=== PATIENT | male | born 1990 | race Caucasian/White ===

== ENCOUNTER 2016-04-21 14:29 | Emergency (ER) | payer OTHER ==
[2016-04-21 14:32] VITALS: BP 128/63; PULSE 74; RESP 16; TEMP 97.6; O2SAT 97
--- NOTE | 2016-04-21 14:44 | PD ---
HPI Chief Complaint: blood glucose Time Seen by Provider: 14:44 Travel History International Travel<30 days: No Contact w/Intl Traveler<30days: No History of Present Illness HPI 25-year-old type I diabetic presents to the ED for evaluation after running out of his diabetic medications. Patient takes 24 units of Toujeo and sliding scale Humalog daily. Last dose yesterday morning. States sugars were "around 500" last night. On presentation the patient complains of feeling tired. Denies chest pain, shortness of breath, dizziness, abdominal pain, nausea, vomiting, dysuria, hematuria. Patient smokes a pack of cigarettes a day, marijuana occasionally, rare alcohol. NKDA. PFSH Past Medical History Diabetes: Yes Social History Alcohol Use: No Tobacco Use: Yes (1 PPD) Substance Use: Yes (marijuana) Allergies-Medications (Allergen,Severity, Reaction): Coded Allergies: No Known Allergies (Unverified , 04/21/16) Reported Meds & Prescriptions Reported Meds & Active Scripts Active Humulin N Inj (Insulin Human NPH) 1,000 Unit/10 Ml Vial 20 Units SQ BID Humulin R Inj (Insulin Human Regular) 1,000 Unit/10 Ml Vial 5-25 Units SQ ACHS Max dose at bedtime:( )units; sugars < 70,(0)units; sugars 150-199,(5)units; sugars 200-249,(10)units; sugars 250-299,(15)units; sugars 300-349,(20)units; sugars more than 349,(25)units. Reported [tujeo] 24 Units SQ DAILY Humalog Inj (Insulin Human Lispro) 1,000 Unit/10 Ml Vial 1-50 Units SQ ACHS Max dose at bedtime:( )units; sugars< 70,(0)units; sugars 150-199,(1)unit; sugars 200-249,(3)units; sugars 250-299,(5)units; sugars 300-349,(7)units; sugars more than 349,(9)units. Review of Systems Except as stated in HPI: all other systems reviewed are Neg Physical Exam Narrative GENERAL: Well-nourished, well-developed nontoxic appearing white male in no acute distress. SKIN: Warm and dry. HEAD: Normocephalic. EYES: No scleral icterus. No injection or drainage. NECK: Supple, trachea midline. No JVD or lymphadenopathy. CARDIOVASCULAR: Regular rate and rhythm without murmurs, gallops, or rubs. 2+ DP and radial pulses bilaterally. RESPIRATORY: Breath sounds equal bilaterally. Mild, occasional expiratory wheezing. No accessory muscle use. GASTROINTESTINAL: Abdomen soft, non-tender, nondistended. Active bowel sounds. MUSCULOSKELETAL: No cyanosis, or edema. Patient is ambulatory and moves all extremities spontaneously. BACK: Nontender without obvious deformity. No CVA tenderness. Data Data Last Documented VS Vital Signs Date Time Temp Pulse Resp B/P Pulse Ox O2 Delivery O2 Flow Rate FiO2 04/21/16 17:15 84 15 129/64 99 Room Air 04/21/16 14:32 97.6 Orders Blood Glucose (04/21/16 14:49) Complete Blood Count With Diff (04/21/16 14:49) Iv Access Insert/Monitor (04/21/16 14:49) Urinalysis - C+S If Indicated (04/21/16 15:00) Sodium Chlor 0.9% 1000 Ml Inj (Ns 1000 M (04/21/16 15:02) Comprehensive Metabolic Panel (04/21/16 15:03) Electrocardiogram (04/21/16 15:04) Blood Gas Venous (Vbg) (04/21/16 15:30) Sodium Chlor 0.9% 1000 Ml Inj (Ns 1000 M (04/21/16 16:30) Sodium Chlor 0.9% 1000 Ml Inj (Ns 1000 M (04/21/16 16:30) Insulin Human Regular Inj (Novolin R Inj (04/21/16 16:30) Calcium Carbonate (Oscal) (04/21/16 17:00) Blood Glucose (04/21/16 17:42) Propofol 1000 Mg/100 Ml Inj (Diprivan 10 (04/21/16 17:45) Labs Laboratory Tests Test 04/21/16 04/21/16 15:00 17:05 White Blood Count 8.4 TH/MM3 Red Blood Count 4.52 MIL/MM3 Hemoglobin 14.5 GM/DL Hematocrit 41.2 % Mean Corpuscular Volume 91.3 FL Mean Corpuscular Hemoglobin 32.0 PG Mean Corpuscular Hemoglobin 35.1 % Concent Red Cell Distribution Width 12.6 % Platelet Count 144 TH/MM3 Mean Platelet Volume 11.1 FL Neutrophils (%) (Auto) 65.3 % Lymphocytes (%) (Auto) 23.7 % Monocytes (%) (Auto) 6.8 % Eosinophils (%) (Auto) 3.2 % Basophils (%) (Auto) 1.0 % Neutrophils # (Auto) 5.5 TH/MM3 Lymphocytes # (Auto) 2.0 TH/MM3 Monocytes # (Auto) 0.6 TH/MM3 Eosinophils # (Auto) 0.3 TH/MM3 Basophils # (Auto) 0.1 TH/MM3 CBC Comment DIFF FINAL Differential Comment Sodium Level 134 MEQ/L Potassium Level 4.4 MEQ/L Chloride Level 101 MEQ/L Carbon Dioxide Level 25.0 MEQ/L Anion Gap 8 MEQ/L Blood Urea Nitrogen 11 MG/DL Creatinine 0.93 MG/DL Estimat Glomerular Filtration 99 ML/MIN Rate Random Glucose 636 MG/DL Calcium Level 8.0 MG/DL Total Bilirubin 0.3 MG/DL Aspartate Amino Transf 22 U/L (AST/SGOT) Alanine Aminotransferase 27 U/L (ALT/SGPT) Alkaline Phosphatase 116 U/L Total Protein 6.8 GM/DL Albumin 3.4 GM/DL Urine Color COLORLESS Urine Turbidity CLEAR Urine pH 6.5 Urine Specific [place] 1.034 Urine Protein NEG mg/dL Urine Glucose (UA) 1000 mg/dL Urine Ketones NEG mg/dL Urine Occult Blood NEG Urine Nitrite NEG Urine Bilirubin NEG Urine Urobilinogen LESS THAN 2.0 MG/DL Urine Leukocyte Esterase NEG Microscopic Urinalysis Comment CULT NOT INDICATED MDM Medical Decision Making Medical Screen Exam Complete: Yes Emergency Medical Condition: Yes Interpretation(s) EKG rate 63, sinus rhythm. FL interval 134. QRS 92 QTc 431. Normal axis. No ischemic changes. Reviewed by Dr. Fonseca. Differential Diagnosis hyperglycemia versus electrolyte abnormality versus DKA versus dehydration verus dysrhythmia versus other Narrative Course 25-year-old type I diabetic presents to the ED for evaluation after running out of insulin. Patient takes 24 units of Toujeo and sliding scale Humalog daily. Last dose yesterday morning. States sugars were "around 500" last night. On presentation the patient complains of feeling tired. Denies chest pain, shortness of breath, dizziness, abdominal pain, nausea, vomiting, dysuria, hematuria. Vitals reviewed. Physical exam reveals a nontoxic-appearing white male in no acute distress. Mild, occasional expiratory wheeze, no extra work of breathing. Abdomen is soft and nontender. IV was established. Patient was placed on continuous monitoring. He was administered 2 liters of normal saline. Bedside blood glucose 592. CBC: WBC 8.4 Hgb 14.5 CMP: Blood glucose 636. Potassium 4.4. Sodium 134. CO2 25. Anion gap 8. Calcium 8.0. UA: Glucose thousand, no ketones. No culture indicated. EKG: Rate 63, sinus rhythm, normal intervals, normal axis. Patient was administered 10 units of regular insulin. Oral calcium supplement administered. Patient states he is unable to afford his medications. I contacted the vault manager. Unfortunately, were unable to offer any assistance for medications. Recheck of BG at bedside: 328 Will prescribe NPH and regular insulin, which costss less than Nominum. NPH 20 units twice a day, regular insulin 15 units scale before meals. Adjust regular insulin to maintain blood glucose target levels. Follow up with the PCP, return to the ED for worsening of symptoms or any urgent/emergent medical condition. He indicated understanding of the instructions. He is stable and discharged. Diagnosis Primary Impression: Hyperglycemia due to type 1 diabetes mellitus Additional Impression: Hypocalcemia Referrals: Primary Care Physician Patient Instructions: General Instructions, Type 1 Diabetes in Adults (ED) Additional Instructions: Rest, hydrated. Take all medication as prescribed. Follow-up the primary care provider Return to the ED for worsening of symptoms or any urgent or emergent medical condition. Med/Other Pt SpecificInfo: Prescription(s) given Scripts Insulin Human NPH Inj (Humulin N Inj)1,000 Unit/10 Ml Vial20 Units SQ BID #10 ML Ref 0 Prov:Paulette Fonseca DO 04/21/16 Insulin Human Regular Inj (Humulin R Inj)1,000 Unit/10 Ml Vial5-25 Units SQ ACHS #10 ML Ref 0 Max dose at bedtime:( )units; sugars < 70,(0)units; sugars 150-199,(5)units; sugars 200-249,(10)units; sugars 250-299,(15)units; sugars 300-349,(20)units; sugars more than 349,(25)units. Prov:Paulette Fonseca DO 04/21/16 Disposition: 01 DISCHARGE HOME Condition: Stable Kasey Parham Apr 21, 2016 14:44
[2016-04-21] MEDS ORDERED: tujeo SQ (14:51)
[2016-04-21] MEDS ORDERED: HUMALOG SQ (14:51)
[2016-04-21 14:55] VITALS: BP 139/74; PULSE 78; RESP 16; O2SAT 96
[2016-04-21] MEDS ORDERED: SODIUM CHLOR 0.9% 1000 ML INJ 1,000 ML IV SCH (15:02)
[2016-04-21 15:35] LABS: AUTOMATED NEUTROPHIL # 5.5 TH/MM3 (1.8-7.7); BASOPHIL # 0.1 TH/MM3 (0-0.2); EOSINOPHIL # 0.3 TH/MM3 (0-0.4); EOSINOPHIL % 3.2 % (0.0-4.0); HEMATOCRIT 41.2 % (39.0-51.0); HEMO FLAGS DIFF FINAL; LYMPH % 23.7 % (9.0-44.0); MEAN CELL VOLUME 91.3 FL (80.0-100.0); MEAN CORPUSCULAR HGB CONC 35.1 % (32.0-36.0); MONO % 6.8 % (0.0-8.0); NEUT % 65.3 % (16.0-70.0); PLATELET COUNT 144 TH/MM3 (150-450); RED BLOOD COUNT 4.52 MIL/MM3 (4.50-5.90); RED CELL DISTRIBUTION WIDTH 12.6 % (11.6-17.2); WHITE BLOOD COUNT 8.4 TH/MM3 (4.0-11.0)
[2016-04-21 16:05] LABS: ALKALINE PHOSPHATASE 116 U/L (45-117); ALT (GPT) 27 U/L (12-78); ANION GAP 8 MEQ/L (5-15); AST (GOT) 22 U/L (15-37); BLOOD UREA NITROGEN 11 MG/DL (7-18); CHLORIDE 101 MEQ/L (98-107); GLOMERULAR FILTRATION RATE 99 ML/MIN (>89); POTASSIUM 4.4 MEQ/L (3.5-5.1); SODIUM (NA) 134 MEQ/L (136-145); TOTAL BILIRUBIN ADULT 0.3 MG/DL (0.2-1.0)
[2016-04-21] MEDS ORDERED: SODIUM CHLOR 0.9% 1000 ML INJ 1,000 ML IV ONE ×2 (16:30)
[2016-04-21] MEDS ORDERED: INSULIN HUMAN REGULAR 1,000 UNITS/10 ML VIAL SQ ONE (16:30)
[2016-04-21] MEDS ORDERED: CALCIUM CARBONATE 1.25 GM (CA 500 MG) TAB PO ONE (17:00)
[2016-04-21 17:15] VITALS: BP 129/64; PULSE 84; RESP 15; O2SAT 99
[2016-04-21] MEDS ORDERED: PROPOFOL 1000 MG/100 ML INJ 100 ML ONE (17:45)
[2016-04-21 17:56] LABS: BLOOD, URINE NEG (NEG); GLUCOSE,URINE 1000 mg/dL (NEG); KETONE, URINE NEG (NEG); NITRITE,URINE NEG (NEG); PH, URINE 6.5 (5.0-8.5); URINE COLOR COLORLESS (YELLW/STRAW)
[2016-04-21 18:03] LABS: COMMENT (UR) CULT NOT INDICATED; CULTURE IF INDICATED CULT NOT INDICATED
[2016-04-21] MEDS ORDERED: INSU100V2 SQ (18:34)
[2016-04-21] MEDS ORDERED: INSU100V3 SQ (18:34)
--- NOTE | 2016-04-21 19:11 | PD ---
Physical Exam Narrative I, Dr. Fonseca, have reviewed the advance practice practitioner's documentation and am in agreement, met with the patient face to face, made the diagnosis, and the medical decision making was done by me. *My assessment and Findings: Uncontrolled DM secondary to noncompliance vs. DKA 25yo IDDM with elevated glucose secondary to running out of his insulin. Denies any other complaints including chest pain, sob, n/v, abdominal pain. Labs reviewed, no leukocytosis. Glucose elevated at 636. Normal anion gap. CO2 25.0. UA showed no leukocyte. Pt given 10 units of subQ insulin, NS IVF x2 and calcium carbonate. Repeat blood glucose was 328. Pt educted and given prescription for insulin. Return precautions given. VS stable. Data Data Last Documented VS Vital Signs Date Time Temp Pulse Resp B/P Pulse Ox O2 Delivery O2 Flow Rate FiO2 04/21/16 17:15 84 15 129/64 99 Room Air 04/21/16 14:32 97.6 Orders Blood Glucose (04/21/16 14:49) Complete Blood Count With Diff (04/21/16 14:49) Iv Access Insert/Monitor (04/21/16 14:49) Urinalysis - C+S If Indicated (04/21/16 15:00) Sodium Chlor 0.9% 1000 Ml Inj (Ns 1000 M (04/21/16 15:02) Comprehensive Metabolic Panel (04/21/16 15:03) Electrocardiogram (04/21/16 15:04) Blood Gas Venous (Vbg) (04/21/16 15:30) Sodium Chlor 0.9% 1000 Ml Inj (Ns 1000 M (04/21/16 16:30) Sodium Chlor 0.9% 1000 Ml Inj (Ns 1000 M (04/21/16 16:30) Insulin Human Regular Inj (Novolin R Inj (04/21/16 16:30) Calcium Carbonate (Oscal) (04/21/16 17:00) Blood Glucose (04/21/16 17:42) Propofol 1000 Mg/100 Ml Inj (Diprivan 10 (04/21/16 17:45) Labs Laboratory Tests Test 04/21/16 04/21/16 15:00 17:05 White Blood Count 8.4 TH/MM3 Red Blood Count 4.52 MIL/MM3 Hemoglobin 14.5 GM/DL Hematocrit 41.2 % Mean Corpuscular Volume 91.3 FL Mean Corpuscular Hemoglobin 32.0 PG Mean Corpuscular Hemoglobin 35.1 % Concent Red Cell Distribution Width 12.6 % Platelet Count 144 TH/MM3 Mean Platelet Volume 11.1 FL Neutrophils (%) (Auto) 65.3 % Lymphocytes (%) (Auto) 23.7 % Monocytes (%) (Auto) 6.8 % Eosinophils (%) (Auto) 3.2 % Basophils (%) (Auto) 1.0 % Neutrophils # (Auto) 5.5 TH/MM3 Lymphocytes # (Auto) 2.0 TH/MM3 Monocytes # (Auto) 0.6 TH/MM3 Eosinophils # (Auto) 0.3 TH/MM3 Basophils # (Auto) 0.1 TH/MM3 CBC Comment DIFF FINAL Differential Comment Sodium Level 134 MEQ/L Potassium Level 4.4 MEQ/L Chloride Level 101 MEQ/L Carbon Dioxide Level 25.0 MEQ/L Anion Gap 8 MEQ/L Blood Urea Nitrogen 11 MG/DL Creatinine 0.93 MG/DL Estimat Glomerular Filtration 99 ML/MIN Rate Random Glucose 636 MG/DL Calcium Level 8.0 MG/DL Total Bilirubin 0.3 MG/DL Aspartate Amino Transf 22 U/L (AST/SGOT) Alanine Aminotransferase 27 U/L (ALT/SGPT) Alkaline Phosphatase 116 U/L Total Protein 6.8 GM/DL Albumin 3.4 GM/DL Urine Color COLORLESS Urine Turbidity CLEAR Urine pH 6.5 Urine Specific [place] 1.034 Urine Protein NEG mg/dL Urine Glucose (UA) 1000 mg/dL Urine Ketones NEG mg/dL Urine Occult Blood NEG Urine Nitrite NEG Urine Bilirubin NEG Urine Urobilinogen LESS THAN 2.0 MG/DL Urine Leukocyte Esterase NEG Microscopic Urinalysis Comment CULT NOT INDICATED MDM Supervised Visit with PRANA[facility]: Yes Interpretation(s) EKG: NSR 63bpm. Normal axis. No ST segment elevation or depression. Diagnosis Primary Impression: Hyperglycemia due to type 1 diabetes mellitus Additional Impression: Hypocalcemia Referrals: Primary Care Physician call for appointment Patient Instructions: General Instructions, Type 1 Diabetes in Adults (ED) Departure Forms: Tests/Procedures Additional Instruction: Rest, hydrated. Take all medication as prescribed. Follow-up the primary care provider Return to the ED for worsening of symptoms or any urgent or emergent medical condition. Scripts Insulin Human NPH Inj (Humulin N Inj)1,000 Unit/10 Ml Vial20 Units SQ BID #10 ML Ref 0 Prov:FonsecaPaulette goodson 04/21/16 Insulin Human Regular Inj (Humulin R Inj)1,000 Unit/10 Ml Vial5-25 Units SQ ACHS #10 ML Ref 0 Max dose at bedtime:( )units; sugars < 70,(0)units; sugars 150-199,(5)units; sugars 200-249,(10)units; sugars 250-299,(15)units; sugars 300-349,(20)units; sugars more than 349,(25)units. Prov:Paulette Fonseca DO 04/21/16 Disposition: 01 DISCHARGE HOME Condition: Stable Paulette Fonseca DO Apr 21, 2016 19:11
[2016-04-22] MEDS ORDERED: INSU1.2I SQ (09:36)
--- NOTE | 2016-04-22 17:13 | EKG ---
Date Performed: 04/21/2016 Time Performed: 16:04:51 PTAGE: 25 years EKG: Sinus rhythm WITH SINUS ARRHYTHMIA NORMAL ECG NO PREVIOUS TRACING DOCTOR: Ashkan Ortega Interpretating Date/Time 04/22/2016 17:11:51
== END 2016-04-21 19:11 | disposition home or self-care (01) ==
LOC: NEPA 14:29
DX: E10.65 Type 1 diabetes mellitus with hyperglycemia (principal); E83.51 Hypocalcemia; Z72.0 Tobacco use; F12.90 Cannabis use, unspecified, uncomplicated; Z79.4 Long term (current) use of insulin
CPT/HCPCS: 80053; 81001; 85025; 93005; 96360; 96361; 96372; 99285; J1815; J7030

== ENCOUNTER 2016-06-30 06:48 | Emergency (ER) | payer OTHER ==
[~2016-06-30] VITALS: Ht 180.3 cm; Wt 80.0 kg
[~2016-06-30 06:48] MED LIST: HUMALOG SQ; INSU1.2I SQ; INSU100V2 SQ; INSU100V3 SQ
[2016-06-30 06:51] VITALS: BP 128/81; PULSE 73; RESP 15; TEMP 98.3; O2SAT 100
[2016-06-30] MEDS ORDERED: SODIUM CHLOR 0.9% 1000 ML INJ 1,000 ML IV ONE ×2 (07:22→07:52)
--- NOTE | 2016-06-30 07:26 | PD ---
HPI Chief Complaint: Medication Refill Request Time Seen by Provider: 07:15 Travel History International Travel<30 days: No Contact w/Intl Traveler<30days: No Traveled to known affect area: No History of Present Illness HPI Patient is a 25-year-old male who presents to the emergency department for hyperglycemia. The patient has a history of type 1 diabetes and has been taken Novolin N 25 units twice a day and Novolin R, 10-1 carb count ratio. The patient states he ran out of Novolin N 2 days ago and has been using his Novolin R, last dose was approximate 4:30 AM with 18 units. He does complain of mild nausea without any vomiting or abdominal pain. He does complain of mild increased thirst. The patient does have a history of DKA. The patient is currently homeless, has been trying to get through the homeless coalition to find a primary physician. The patient's last prescription for insulin was prescribed in the emergency department 2 months ago per his report. He denies any chest pain or shortness of breath. Symptoms are moderate, exacerbated by history of diabetes and running out of his medications. PFSH Past Medical History Diabetes: Yes Social History Alcohol Use: No Tobacco Use: Yes (1 PPD) Substance Use: Yes (marijuana) Allergies-Medications (Allergen,Severity, Reaction): Coded Allergies: No Known Allergies (Unverified , 04/21/16) Reported Meds & Prescriptions Reported Meds & Active Scripts Active Novolin R Inj (Insulin Human Regular) 1,000 Unit/10 Ml Vial 2-12 Units SQ ACHS Max dose at bedtime:( )units; sugars less than 70,(0) units; sugars 150-199,(2)unit; sugars 200-249,(4)units; sugars 250-299,(7) units; sugars 300-349,(10)units; sugars greater than 349,(12)units Novolin N Inj (Insulin Human NPH) 1,000 Unit/10 Ml Vial 20 Units SQ BID Humulin N Inj (Insulin Human NPH) 1,000 Unit/10 Ml Vial 20 Units SQ BID Humulin R Inj (Insulin Human Regular) 1,000 Unit/10 Ml Vial 5-25 Units SQ ACHS Max dose at bedtime:( )units; sugars < 70,(0)units; sugars 150-199,(5)units; sugars 200-249,(10)units; sugars 250-299,(15)units; sugars 300-349,(20)units; sugars more than 349,(25)units. Review of Systems Except as stated in HPI: all other systems reviewed are Neg General / Constitutional: No: Fever HENT: No: Lightheadedness Cardiovascular: No: Chest Pain or Discomfort Respiratory: No: Shortness of Breath Gastrointestinal: Positive: Nausea, No: Vomiting, Abdominal Pain Musculoskeletal: No: Weakness Endocrine: Positive: Polyuria, Polydipsia Physical Exam Narrative GENERAL: Awake, alert, pleasant 25-year-old male who appears his stated age and is in no acute respiratory distress. SKIN: Warm and dry. HEAD: Atraumatic. Normocephalic. EYES: Pupils equal and round. No scleral icterus. No injection or drainage. ENT: No nasal bleeding or discharge. Slightly dry mucous membranes. NECK: Trachea midline. No JVD. CARDIOVASCULAR: Regular rate and rhythm. No murmur appreciated. RESPIRATORY: No accessory muscle use. Clear to auscultation. Breath sounds equal bilaterally. GASTROINTESTINAL: Abdomen soft, non-tender, nondistended. MUSCULOSKELETAL: No obvious deformities. No clubbing. No cyanosis. No edema. NEUROLOGICAL: Awake and alert. No obvious cranial nerve deficits. Motor grossly within normal limits. Normal speech. PSYCHIATRIC: Appropriate mood and affect; insight and judgment normal. Data Data Last Documented VS Vital Signs Date Time Temp Pulse Resp B/P Pulse Ox O2 Delivery O2 Flow Rate FiO2 06/30/16 06:51 98.3 73 15 128/81 100 Room Air Orders Complete Blood Count With Diff (06/30/16 07:22) Comprehensive Metabolic Panel (06/30/16 07:22) Magnesium (Mg) (06/30/16 07:22) Beta Hydroxybutyrate (Acetone) (06/30/16 07:22) Urinalysis - C+S If Indicated (06/30/16 07:22) Blood Gas Venous (Vbg) (06/30/16 07:22) Ecg Monitoring (06/30/16 07:22) Iv Access Insert/Monitor (06/30/16 07:22) Oximetry (06/30/16 07:22) NPO (06/30/16 07:22) Sodium Chlor 0.9% 1000 Ml Inj (Ns 1000 M (06/30/16 07:22) Sodium Chlor 0.9% 1000 Ml Inj (Ns 1000 M (06/30/16 07:52) Sodium Chloride 0.9% Flush (Ns Flush) (06/30/16 07:30) Lipase (06/30/16 07:22) Insulin Human Regular Inj (Novolin R Inj (06/30/16 08:15) Insulin Aspart Inj (Novolog Inj) (06/30/16 08:15) Labs Laboratory Tests Test 06/30/16 06/30/16 06/30/16 07:25 07:32 08:25 White Blood Count 8.7 TH/MM3 Red Blood Count 4.68 MIL/MM3 Hemoglobin 14.8 GM/DL Hematocrit 44.7 % Mean Corpuscular Volume 95.4 FL Mean Corpuscular Hemoglobin 31.6 PG Mean Corpuscular Hemoglobin 33.1 % Concent Red Cell Distribution Width 12.6 % Platelet Count 190 TH/MM3 Mean Platelet Volume 10.2 FL Neutrophils (%) (Auto) 63.5 % Lymphocytes (%) (Auto) 25.8 % Monocytes (%) (Auto) 6.6 % Eosinophils (%) (Auto) 2.6 % Basophils (%) (Auto) 1.5 % Neutrophils # (Auto) 5.5 TH/MM3 Lymphocytes # (Auto) 2.2 TH/MM3 Monocytes # (Auto) 0.6 TH/MM3 Eosinophils # (Auto) 0.2 TH/MM3 Basophils # (Auto) 0.1 TH/MM3 CBC Comment DIFF FINAL Differential Comment Sodium Level 132 MEQ/L Potassium Level 4.3 MEQ/L Chloride Level 94 MEQ/L Carbon Dioxide Level 29.0 MEQ/L Anion Gap 9 MEQ/L Blood Urea Nitrogen 15 MG/DL Creatinine 1.13 MG/DL Estimat Glomerular Filtration 79 ML/MIN Rate Random Glucose 635 MG/DL Calcium Level 9.2 MG/DL Magnesium Level 2.2 MG/DL Total Bilirubin 0.3 MG/DL Aspartate Amino Transf 20 U/L (AST/SGOT) Alanine Aminotransferase 35 U/L (ALT/SGPT) Alkaline Phosphatase 127 U/L Total Protein 7.8 GM/DL Albumin 3.7 GM/DL Lipase 190 U/L B-Hydroxybutyrate 0.14 MMOL/L Blood Gas Puncture Site LINE Blood Gas Patient Temperature 98.6 Venous Blood pH 7.34 Venous Blood Partial Pressure 44 mmHg CO2 Venous Blood Partial Pressure 53 mmHg O2 Venous Blood HCO3 23 mmol/L Venous Blood Oxygen Saturation 83 % Venous Blood Oxygen Content 14.5 Vol % Venous Blood Base Excess -1.8 mmol/L Blood Gas Inspired Oxygen 21 % Urine Color COLORLESS Urine Turbidity CLEAR Urine pH 5.0 Urine Specific [place] 1.024 Urine Protein NEG mg/dL Urine Glucose (UA) 1000 mg/dL Urine Ketones NEG mg/dL Urine Occult Blood TRACE Urine Nitrite NEG Urine Bilirubin NEG Urine Urobilinogen LESS THAN 2.0 MG/DL Urine Leukocyte Esterase NEG Urine RBC 6 /hpf Microscopic Urinalysis Comment CULT NOT INDICATED MDM Medical Decision Making Medical Screen Exam Complete: Yes Emergency Medical Condition: Yes Medical Record Reviewed: Yes Interpretation(s) Laboratory Tests Test 06/30/16 06/30/16 06/30/16 07:25 07:32 08:25 White Blood Count 8.7 TH/MM3 Red Blood Count 4.68 MIL/MM3 Hemoglobin 14.8 GM/DL Hematocrit 44.7 % Mean Corpuscular Volume 95.4 FL Mean Corpuscular Hemoglobin 31.6 PG Mean Corpuscular Hemoglobin 33.1 % Concent Red Cell Distribution Width 12.6 % Platelet Count 190 TH/MM3 Mean Platelet Volume 10.2 FL Neutrophils (%) (Auto) 63.5 % Lymphocytes (%) (Auto) 25.8 % Monocytes (%) (Auto) 6.6 % Eosinophils (%) (Auto) 2.6 % Basophils (%) (Auto) 1.5 % Neutrophils # (Auto) 5.5 TH/MM3 Lymphocytes # (Auto) 2.2 TH/MM3 Monocytes # (Auto) 0.6 TH/MM3 Eosinophils # (Auto) 0.2 TH/MM3 Basophils # (Auto) 0.1 TH/MM3 CBC Comment DIFF FINAL Differential Comment Sodium Level 132 MEQ/L Potassium Level 4.3 MEQ/L Chloride Level 94 MEQ/L Carbon Dioxide Level 29.0 MEQ/L Anion Gap 9 MEQ/L Blood Urea Nitrogen 15 MG/DL Creatinine 1.13 MG/DL Estimat Glomerular Filtration 79 ML/MIN Rate Random Glucose 635 MG/DL Calcium Level 9.2 MG/DL Magnesium Level 2.2 MG/DL Total Bilirubin 0.3 MG/DL Aspartate Amino Transf 20 U/L (AST/SGOT) Alanine Aminotransferase 35 U/L (ALT/SGPT) Alkaline Phosphatase 127 U/L Total Protein 7.8 GM/DL Albumin 3.7 GM/DL Lipase 190 U/L B-Hydroxybutyrate 0.14 MMOL/L Blood Gas Puncture Site LINE Blood Gas Patient Temperature 98.6 Venous Blood pH 7.34 Venous Blood Partial Pressure 44 mmHg CO2 Venous Blood Partial Pressure 53 mmHg O2 Venous Blood HCO3 23 mmol/L Venous Blood Oxygen Saturation 83 % Venous Blood Oxygen Content 14.5 Vol % Venous Blood Base Excess -1.8 mmol/L Blood Gas Inspired Oxygen 21 % Urine Color COLORLESS Urine Turbidity CLEAR Urine pH 5.0 Urine Specific [place] 1.024 Urine Protein NEG mg/dL Urine Glucose (UA) 1000 mg/dL Urine Ketones NEG mg/dL Urine Occult Blood TRACE Urine Nitrite NEG Urine Bilirubin NEG Urine Urobilinogen LESS THAN 2.0 MG/DL Urine Leukocyte Esterase NEG Urine RBC 6 /hpf Microscopic Urinalysis Comment CULT NOT INDICATED Differential Diagnosis Differential diagnosis includes hyperglycemia, DKA, noncompliance, dehydration, electrolyte abnormality. Narrative Course IV was established, labs are drawn and sent, and the patient was placed on cardiac telemetry monitoring and continuous pulse oximetry monitoring. The patient was administered a 2 L of IV fluids. The patient's blood sugar read "high ", in triage. The patient's blood glucose was greater in 600, therefore, patient was administered insulin 10 units intravenously and 10 units subcutaneously. Patient's Accu-Chek is reevaluated, was 214. The patient was fed and blood glucose was repeated one hour later. Patient's ABG is normal, anion gap is normal, no evidence of DKA. Diagnosis Primary Impression: Hyperglycemia due to type 1 diabetes mellitus Patient Instructions: General Instructions Additional Instructions: Medications as directed. Follow-up with your primary physician. Return if symptoms worsen or progress. Monitor blood glucose daily. Med/Other Pt SpecificInfo: Prescription(s) given Scripts Insulin Human Regular Inj (Novolin R Inj)1,000 Unit/10 Ml Vial2-12 Units SQ ACHS #10 ML Ref 3 Max dose at bedtime:( )units; sugars less than 70,(0) units; sugars 150-199,(2)unit; sugars 200-249,(4)units; sugars 250-299,(7) units; sugars 300-349,(10)units; sugars greater than 349,(12)units Prov:Alfa Hogan MD 06/30/16 Insulin Human NPH Inj (Novolin N Inj)1,000 Unit/10 Ml Vial20 Units SQ BID #10 ML Ref 3 Prov:Alfa Hogan MD 06/30/16 Disposition: 01 DISCHARGE HOME Condition: Stable Alfa Hogan MD Jun 30, 2016 07:26
[2016-06-30] MEDS ORDERED: SODIUM CHLORIDE 0.9% FLUSH 5 ML FLUSH IVF PRN (07:30)
[2016-06-30 07:42] LABS: AUTOMATED NEUTROPHIL # 5.5 TH/MM3 (1.8-7.7); BASOPHIL # 0.1 TH/MM3 (0-0.2); BASOPHIL % 1.5 % (0.0-2.0); EOSINOPHIL # 0.2 TH/MM3 (0-0.4); EOSINOPHIL % 2.6 % (0.0-4.0); HEMATOCRIT 44.7 % (39.0-51.0); HEMO FLAGS DIFF FINAL; LYMPH % 25.8 % (9.0-44.0); LYMPHOCYTE # 2.2 TH/MM3 (1.0-4.8); MEAN CELL VOLUME 95.4 FL (80.0-100.0); MEAN CORPUSCULAR HEMOGLOBIN 31.6 PG (27.0-34.0); MEAN CORPUSCULAR HGB CONC 33.1 % (32.0-36.0); MONO % 6.6 % (0.0-8.0); NEUT % 63.5 % (16.0-70.0); PLATELET COUNT 190 TH/MM3 (150-450); RED BLOOD COUNT 4.68 MIL/MM3 (4.50-5.90); RED CELL DISTRIBUTION WIDTH 12.6 % (11.6-17.2); WHITE BLOOD COUNT 8.7 TH/MM3 (4.0-11.0)
[2016-06-30 07:43] LABS: BLOOD GAS VENOUS BASE EXCESS -1.8 mmol/L (-2-2); BLOOD GAS VENOUS HCO3 23 mmol/L (22-26); BLOOD GAS VENOUS O2 CONTENT 14.5 Vol % (9.0-17.0); BLOOD GAS VENOUS O2 HGB SAT 83 % (70-76); BLOOD GAS VENOUS PCO2 44 mmHg (44-48); BLOOD GAS VENOUS PO2 53 mmHg (35-40); BLOOD GAS VENOUS pH 7.34 (7.360-7.400); CRITICAL VALUE NO; DRAW SITE LINE; FIO2 21 %; STAT YES; TEMP CORR TO 98.6
[2016-06-30 07:57] LABS: ALT (GPT) 35 U/L (12-78); ANION GAP 9 MEQ/L (5-15); AST (GOT) 20 U/L (15-37); BLOOD UREA NITROGEN 15 MG/DL (7-18); CHLORIDE 94 MEQ/L (98-107); GLOMERULAR FILTRATION RATE 79 ML/MIN (>89); MAGNESIUM 2.2 MG/DL (1.5-2.5); POTASSIUM 4.3 MEQ/L (3.5-5.1); SODIUM (NA) 132 MEQ/L (136-145)
[2016-06-30 08:06] LABS: ALKALINE PHOSPHATASE 127 U/L (45-117); BETA-HYDROXYBUTYRATE 0.14 MMOL/L (0.00-0.39); TOTAL BILIRUBIN ADULT 0.3 MG/DL (0.2-1.0)
[2016-06-30] MEDS ORDERED: INSULIN ASPART 1,000 UNITS/10 ML VIAL SQ ONE (08:15)
[2016-06-30] MEDS ORDERED: INSULIN HUMAN REGULAR 1,000 UNITS/10 ML VIAL IV PUSH ONE (08:15)
[2016-06-30 08:49] LABS: BLOOD, URINE TRACE (NEG); COMMENT (UR) CULT NOT INDICATED; CULTURE IF INDICATED CULT NOT INDICATED; GLUCOSE,URINE 1000 mg/dL (NEG); KETONE, URINE NEG (NEG); NITRITE,URINE NEG (NEG); URINE COLOR COLORLESS (YELLW/STRAW)
[2016-06-30] MEDS ORDERED: NOVONP2 SQ (09:07)
[2016-06-30] MEDS ORDERED: NOVORP2 SQ (09:07)
[2016-06-30 10:44] VITALS: BP 128/76
== END 2016-06-30 10:45 | disposition home or self-care (01) ==
LOC: NEPE 06:48
DX: E10.65 Type 1 diabetes mellitus with hyperglycemia (principal); Z79.4 Long term (current) use of insulin; F17.210 Nicotine dependence, cigarettes, uncomplicated
CPT/HCPCS: 80053; 81001; 82010; 82805; 83690; 83735; 85025; 96361; 96372; 96374; 99285; J1815; J7030

== ENCOUNTER 2016-07-01 07:21 | Inpatient (IN) | payer OTHER ==
[~2016-07-01] VITALS: Ht 180.3 cm; Wt 82.0 kg
[~2016-07-01 07:21] MED LIST changes: -HUMALOG SQ; -INSU1.2I SQ; +NOVONP2 SQ; +NOVORP2 SQ
[2016-07-01] MEDS ORDERED: SODIUM CHLOR 0.9% 1000 ML INJ 1,000 ML IV ONE ×3 (07:40→08:30)
[2016-07-01] MEDS ORDERED: SODIUM CHLORIDE 0.9% FLUSH 5 ML FLUSH IVF PRN (07:45)
[2016-07-01 07:55] LABS: BLOOD GAS VENOUS BASE EXCESS -7.4 mmol/L (-2-2); BLOOD GAS VENOUS HCO3 18 mmol/L (22-26); BLOOD GAS VENOUS O2 HGB SAT 89 % (70-76); BLOOD GAS VENOUS PCO2 38 mmHg (44-48); BLOOD GAS VENOUS PO2 68 mmHg (35-40); TEMP CORR TO 98.6
[2016-07-01 07:56] LABS: CRITICAL VALUE YES; DRAW SITE NURSE; FIO2 21 %; STAT YES
[2016-07-01 07:57] VITALS: BP 137/64; PULSE 72; RESP 20; TEMP 98.3; O2SAT 94
[2016-07-01] MEDS ORDERED: ONDANSETRON HCL 4 MG/2 ML VIAL IV PUSH ONE (08:00)
[2016-07-01 08:07] LABS: BASOPHIL # 0.1 TH/MM3 (0-0.2); BASOPHIL % 1.5 % (0.0-2.0); EOSINOPHIL # 0.1 TH/MM3 (0-0.4); EOSINOPHIL % 1.1 % (0.0-4.0); HEMATOCRIT 43.9 % (39.0-51.0); HEMO FLAGS DIFF FINAL; LYMPH % 21.8 % (9.0-44.0); LYMPHOCYTE # 2.2 TH/MM3 (1.0-4.8); MEAN CORPUSCULAR HEMOGLOBIN 32.2 PG (27.0-34.0); MEAN CORPUSCULAR HGB CONC 34.3 % (32.0-36.0); MONO % 4.8 % (0.0-8.0); NEUT % 70.8 % (16.0-70.0); PLATELET COUNT 237 TH/MM3 (150-450); RED BLOOD COUNT 4.67 MIL/MM3 (4.50-5.90); RED CELL DISTRIBUTION WIDTH 12.7 % (11.6-17.2); WHITE BLOOD COUNT 9.9 TH/MM3 (4.0-11.0)
--- NOTE | 2016-07-01 08:26 | PD ---
HPI Chief Complaint: Diabetic Time Seen by Provider: 07:32 Travel History International Travel<30 days: No Contact w/Intl Traveler<30days: No Traveled to known affect area: No History of Present Illness HPI 25-year-old male presents with feeling like he is in DKA with chest pain, vomiting and general ill feeling. He states since he was discharged here at 10: 30 yesterday morning he could not fill this prescription as our pharmacy is closed on the weekend and he cannot afford to get it filled at an outside pharmacy. He waited to come until now as he was trying to collect money to get the prescription but as he was getting sicker he decided he could not wait. He states no other concurrent complaints. Quality is nonbloody. Severity is multiple episodes of emesis. Duration is since yesterday. PFSH Past Medical History Diabetes: Yes Patient Takes Glucophage: No Diminished Hearing: No Tetanus Vaccination: > 5 Years Influenza Vaccination: No Past Surgical History Surgical History: No Previous Surgery Social History Alcohol Use: No Tobacco Use: Yes (1 PPD) Substance Use: Yes (marijuana) Allergies-Medications (Allergen,Severity, Reaction): Coded Allergies: No Known Allergies (Unverified , 07/01/16) Reported Meds & Prescriptions Reported Meds & Active Scripts Active No Active Prescriptions or Reported Medications Review of Systems Except as stated in HPI: all other systems reviewed are Neg Physical Exam Narrative GENERAL: Well-nourished, well-developed patient. SKIN: Warm and dry. HEAD: Normocephalic and atraumatic. EYES: No injection or drainage. ENT: No nasal drainage noted. NECK: Supple, trachea midline. CARDIOVASCULAR: Regular rate and rhythm RESPIRATORY: Breath sounds equal bilaterally at apices. No accessory muscle use. GASTROINTESTINAL: Abdomen soft, mild tender epigastric area, nondistended. EXTREMITIES: No edema. NEUROLOGICAL: Awake and alert. Moves all extremities. Normal speech. Data Data Last Documented VS Vital Signs Date Time Temp Pulse Resp B/P Pulse Ox O2 Delivery O2 Flow Rate FiO2 07/01/16 07:57 98.3 72 20 137/64 94 Orders Complete Blood Count With Diff (07/01/16 07:40) Comprehensive Metabolic Panel (07/01/16 07:40) Magnesium (Mg) (07/01/16 07:40) Phosphorus (Po4) (07/01/16 07:40) Beta Hydroxybutyrate (Acetone) (07/01/16 07:40) Urinalysis - C+S If Indicated (07/01/16 07:40) Blood Gas Venous (Vbg) (07/01/16 07:40) Blood Glucose (07/01/16 07:40) Ecg Monitoring (07/01/16 07:40) Iv Access Insert/Monitor (07/01/16 07:40) Oximetry (07/01/16 07:40) NPO (07/01/16 07:40) Sodium Chlor 0.9% 1000 Ml Inj (Ns 1000 M (07/01/16 07:40) Sodium Chlor 0.9% 1000 Ml Inj (Ns 1000 M (07/01/16 08:10) Sodium Chloride 0.9% Flush (Ns Flush) (07/01/16 07:45) Ondansetron Inj (Zofran Inj) (07/01/16 08:00) Electrocardiogram (07/01/16 08:05) Ckmb (Isoenzyme) Profile (07/01/16 08:05) Troponin I (07/01/16 08:05) Chest, Single Ap (07/01/16 ) Sodium Chlor 0.9% 1000 Ml Inj (Ns 1000 M (07/01/16 08:30) Metoclopramide Inj (Reglan Inj) (07/01/16 09:15) Admit Order (Ed Use Only) (07/01/16 09:19) Transfer Table Operator / Telemetry GI.Q8H (07/01/16 09:19) ^ Insert Iv (07/01/16 09:19) Sodium Chlor 0.9% 1000 Ml Inj (Ns 1000 M (07/01/16 09:19) Dext 5%-Nacl 0.9% 1000 Ml Inj (D5w-Ns 10 (07/01/16 09:19) Insulin Human Regular Inj (Novolin R Inj (07/01/16 09:30) Insulin Regular (Iv Infusion) (Novolin R (07/01/16 09:30) Potassium Chlor 20 Meq Premix (Kcl 20 Me (07/01/16 09:30) Potassium Chlor 20 Meq Premix (Kcl 20 Me (07/01/16 09:30) Potassium Chlor 20 Meq Premix (Kcl 20 Me (07/01/16 09:30) Potassium Chlor 20 Meq Premix (Kcl 20 Me (07/01/16 09:30) Sodium Bicarbonate 8.4% Inj (Sodium Bica (07/01/16 09:30) Sodium Bicarbonate 8.4% Inj (Sodium Bica (07/01/16 09:30) Sodium Phosphate Inj (Sodium Phosphate I (07/01/16 09:30) Basic Metabolic Panel (Bmp) (07/01/16 14:19) Basic Metabolic Panel (Bmp) (07/01/16 20:19) Basic Metabolic Panel (Bmp) (07/02/16 02:19) Basic Metabolic Panel (Bmp) (07/02/16 08:19) Magnesium (Mg) (07/01/16 14:19) Magnesium (Mg) (07/01/16 20:19) Magnesium (Mg) (07/02/16 02:19) Magnesium (Mg) (07/02/16 08:19) Phosphorus (Po4) (07/01/16 14:19) Phosphorus (Po4) (07/01/16 20:19) Phosphorus (Po4) (07/02/16 02:19) Phosphorus (Po4) (07/02/16 08:19) Beta Hydroxybutyrate (Acetone) (07/01/16 20:19) Beta Hydroxybutyrate (Acetone) (07/02/16 08:19) Labs Laboratory Tests Test 07/01/16 07/01/16 07/01/16 07:47 07:50 09:05 Blood Gas Puncture Site NURSE Blood Gas Patient Temperature 98.6 Venous Blood pH 7.30 Venous Blood Partial Pressure 38 mmHg CO2 Venous Blood Partial Pressure 68 mmHg O2 Venous Blood HCO3 18 mmol/L Venous Blood Oxygen Saturation 89 % Venous Blood Oxygen Content 18.0 Vol % Venous Blood Base Excess -7.4 mmol/L Blood Gas Inspired Oxygen 21 % White Blood Count 9.9 TH/MM3 Red Blood Count 4.67 MIL/MM3 Hemoglobin 15.1 GM/DL Hematocrit 43.9 % Mean Corpuscular Volume 94.0 FL Mean Corpuscular Hemoglobin 32.2 PG Mean Corpuscular Hemoglobin 34.3 % Concent Red Cell Distribution Width 12.7 % Platelet Count 237 TH/MM3 Mean Platelet Volume 10.2 FL Neutrophils (%) (Auto) 70.8 % Lymphocytes (%) (Auto) 21.8 % Monocytes (%) (Auto) 4.8 % Eosinophils (%) (Auto) 1.1 % Basophils (%) (Auto) 1.5 % Neutrophils # (Auto) 7.0 TH/MM3 Lymphocytes # (Auto) 2.2 TH/MM3 Monocytes # (Auto) 0.5 TH/MM3 Eosinophils # (Auto) 0.1 TH/MM3 Basophils # (Auto) 0.1 TH/MM3 CBC Comment DIFF FINAL Differential Comment Sodium Level 138 MEQ/L Potassium Level 4.4 MEQ/L Chloride Level 97 MEQ/L Carbon Dioxide Level 19.1 MEQ/L Anion Gap 22 MEQ/L Blood Urea Nitrogen 18 MG/DL Creatinine 1.12 MG/DL Estimat Glomerular Filtration 80 ML/MIN Rate Random Glucose 582 MG/DL Calcium Level 9.3 MG/DL Phosphorus Level 4.1 MG/DL Magnesium Level 2.2 MG/DL Total Bilirubin 0.6 MG/DL Aspartate Amino Transf 64 U/L (AST/SGOT) Alanine Aminotransferase 53 U/L (ALT/SGPT) Alkaline Phosphatase 148 U/L Total Creatine Kinase 97 U/L Troponin I LESS THAN 0.02 NG/ML Total Protein 8.0 GM/DL Albumin 4.2 GM/DL B-Hydroxybutyrate 5.33 MMOL/L Urine Color COLORLESS Urine Turbidity CLEAR Urine pH 5.0 Urine Specific [place] 1.024 Urine Protein NEG mg/dL Urine Glucose (UA) 1000 mg/dL Urine Ketones 150 mg/dL Urine Occult Blood NEG Urine Nitrite NEG Urine Bilirubin NEG Urine Urobilinogen LESS THAN 2.0 MG/DL Urine Leukocyte Esterase NEG Urine RBC LESS THAN 1 /hpf Urine WBC 1 /hpf Microscopic Urinalysis Comment CULT NOT INDICATED MDM Medical Decision Making Medical Screen Exam Complete: Yes Emergency Medical Condition: Yes Medical Record Reviewed: Yes (past history confirmed) Interpretation(s) VBG with mild metabolic acidosis with pH of 7.3 and bicarbonate of 18 with -7.4 base excess EKG shows NSR, no ST elevation or depression, and no arrhythmias. No significant T-wave inversions. CBC & BMP Diagram 07/01/16 07:50 Last 24 hours Impressions Chest X-Ray 07/01/16 0000 Signed Impressions: Service Date/Time: Friday, July 01, 2016 08:37 - CONCLUSION: No acute disease. Kevin Stevens MD Differential Diagnosis DKA, hyperglycemia noncompliance, electrolyte abnormality, renal failure, [place], musculoskeletal, gastritis Narrative Course Will check blood work, EKG, chest x-ray and dose with IV fluids and Zofran and reevaluate Patient has mild DKA with bicarbonate of 19, pH of 7.3 on VBG. We'll start insulin drip and admit to medicine. Insulin drip started. Patient will be monitored in the ICU for further care Critical Care Narrative Aggregate critical care time was 30 minutes. Time to perform other separately billable procedures was not included in the critical care time. My time did not include minutes spent treating any other patients simultaneously or on activities that did not directly contribute to the patient's treatment. The services I provided to this patient were to treat and/or prevent clinically significant deterioration that could result in: Metabolic derangement, I provided critical care services requiring my management, as noted below: Chart data review, documentation time, medication orders and management, vital sign assessments/reviewing monitor data, ordering and reviewing lab tests, ordering and interpreting/reviewing x-rays and diagnostic studies, care of the patient and discussion of the patient with the admitting physicians. Physician Communication Physician Communication resident team agrees to admit Diagnosis Primary Impression: DKA (diabetic ketoacidoses) Qualified Code: E10.10 - Diabetic ketoacidosis without coma associated with type 1 diabetes mellitus Admitting Information Admitting Physician Requests: Admit Scripts No Active Prescriptions or Reported Meds Elda Quiñones MD Jul 01, 2016 08:26
[2016-07-01 08:30] LABS: ALT (GPT) 53 U/L (12-78); ANION GAP 22 MEQ/L (5-15); AST (GOT) 64 U/L (15-37); BICARBONATE 19.1 MEQ/L (21.0-32.0); BLOOD UREA NITROGEN 18 MG/DL (7-18); CHLORIDE 97 MEQ/L (98-107); GLOMERULAR FILTRATION RATE 80 ML/MIN (>89); MAGNESIUM 2.2 MG/DL (1.5-2.5); POTASSIUM 4.4 MEQ/L (3.5-5.1); SODIUM (NA) 138 MEQ/L (136-145); TOTAL BILIRUBIN ADULT 0.6 MG/DL (0.2-1.0)
[2016-07-01 08:37] LABS: ALKALINE PHOSPHATASE 148 U/L (45-117); BETA-HYDROXYBUTYRATE 5.33 MMOL/L (0.00-0.39)
--- NOTE | 2016-07-01 08:39 | RADRPT ---
EXAM DATE/TIME: 07/01/2016 08:37 [facility] COMPARISON: No previous studies available for comparison. INDICATIONS : Vomiting MEDICAL HISTORY : None. SURGICAL HISTORY : None. ENCOUNTER: Initial ACUITY: 1 day PAIN SCORE: 0/10 LOCATION: chest FINDINGS: A single view of the chest demonstrates the lungs to be symmetrically aerated without evidence of mas s, infiltrate or effusion. The cardiomediastinal contours are unremarkable. Osseous structures are intact. CONCLUSION: No acute disease. Kevin Stevens MD on July 01, 2016 at 8:38 Board Certified Radiologist. This report was verified electronically.
[2016-07-01 08:46] LABS: CREATINE KINASE 97 U/L (39-308)
[2016-07-01] MEDS ORDERED: METOCLOPRAMIDE HCL 10 MG/2 ML VIAL IV PUSH ONE (09:15)
[2016-07-01] MEDS: DEXT 5%-NACL 0.9% 1000 ML INJ 1,000 ML IV SCH ×2 (09:19→12:41)
[2016-07-01 09:29] LABS: BLOOD, URINE NEG (NEG); COMMENT (UR) CULT NOT INDICATED; CULTURE IF INDICATED CULT NOT INDICATED; GLUCOSE,URINE 1000 mg/dL (NEG); KETONE, URINE 150 mg/dL (NEG); NITRITE,URINE NEG (NEG); URINE COLOR COLORLESS (YELLW/STRAW)
[2016-07-01] MEDS ORDERED: MORPHINE SULFATE 4 MG/ML INJ IV PRN (09:30)
[2016-07-01] MEDS ORDERED: SODIUM PHOSPHATE INJ 15 MMOL in SODIUM CHLORIDE 0.9% INJ 100 ML IV PRN (09:30)
[2016-07-01] MEDS ORDERED: INSULIN HUMAN REGULAR 1,000 UNITS/10 ML VIAL IV PUSH ONE (09:30)
[2016-07-01] MEDS ORDERED: POTASSIUM CHLOR 20 MEQ PREMIX 100 ML IV PRN ×4 (09:30)
[2016-07-01] MEDS ORDERED: ACETAMINOPHEN/HYDROcodone 325 MG/5 MG TAB PO PRN (09:30)
[2016-07-01] MEDS ORDERED: ACETAMINOPHEN 325 MG TAB PO PRN (09:30)
[2016-07-01] MEDS ORDERED: INSULIN REGULAR (IV INFUSION) 100 UNITS in SODIUM CHLORIDE 0.9% INJ 99 ML IV SCH (09:30)
[2016-07-01] MEDS ORDERED: ONDANSETRON HCL 4 MG/2 ML VIAL IVP PRN (09:30)
[2016-07-01] MEDS ORDERED: SODIUM BICARBONATE 8.4% SOLN 50 MEQ/50 ML VIAL IV PRN ×2 (09:30)
[2016-07-01] MEDS ORDERED: SODIUM CHLORIDE 0.9% FLUSH 5 ML FLUSH FLUSH PRN (09:30)
[2016-07-01] MEDS ORDERED: METOCLOPRAMIDE HCL 10 MG/2 ML VIAL IV PUSH PRN (09:30)
[2016-07-01] MEDS ORDERED: NALOXONE HCL 0.4 MG/ML AMP IV PRN (09:30)
[2016-07-01] MEDS ORDERED: ACETAMINOPHEN/HYDROcodone 325 MG/10 MG TAB PO PRN (09:30)
--- NOTE | 2016-07-01 09:32 | HHI.HP ---
[facility] Service Family Medicine Primary Care Physician No Primary Care Physician Admission Diagnosis dka Diagnoses: Chief Complaint: vomiting International Travel<30 Days: No Contact w/Intl Traveler<30days: No Known Affected Area: No History of Present Illness 25 y/o male with history of Type 1 Diabetes presents with vomiting and abdominal pain. Pt states he ran out of insulin the other day. He was in the ED yesterday after he felt like his sugar was high. He had nausea/vomiting and abdominal pain this morning. States he vomited over 30 times this morning, some bloody. He takes Novilin N long-acting 24 BID. Takes Novilin R 10-1 carb count. Ran out of both insulins. Last time he took some was day before yesterday. Feeling fine before coming into the ED yesterday. No recent illness, cough, dysuria. History of DKA in the past. No fever/chills, night sweats. No pain, besides abdominal pain. Complains of thirst. No diarrhea. He has been on insulin since 12 years old. No other medical problems. He is homeless, just moved from [place]. Has no doctor down here yet. He was getting his insulin from the [facility]. (Patrice Frank MD R1) Review of Systems Constitutional: DENIES: Diaphoretic episodes, Fever, Chills Eyes: DENIES: Vision loss, Double Vision Ears, nose, mouth, throat: DENIES: Ear Pain, Running Nose Respiratory: DENIES: Cough, Shortness of breath Cardiovascular: DENIES: Chest pain, Palpitations, Lower Extremity Edema Gastrointestinal: COMPLAINS OF: Abdominal pain, Vomiting, DENIES: Black stools , Bloody stools, Diarrhea, Nausea Genitourinary: DENIES: Urgency, Dysuria Musculoskeletal: DENIES: Joint pain, Stiffness Integumentary: DENIES: Abnormal pigmentation, Rash Hematologic/lymphatic: DENIES: Bruising, Lymphadenopathy Neurologic: DENIES: Abnormal gait, Headache Psychiatric: DENIES: Anxiety, Depression (Patrice Frank MD R1) Past Family Social History Past Medical History T1DM Past Surgical History None Reported Medications Reported Meds & Active Scripts Active No Active Prescriptions or Reported Medications (Patrice Frank MD R1) Allergies: Coded Allergies: No Known Allergies (Unverified , 07/01/16) Active Ordered Medications Active Medications Dextrose/Sodium Chloride (D5W-NS 1000 ml Inj) 1,000 ml @ 200 mls/hr Q5H IV; Start 07/01/16 at 09:19 Insulin Human Regular 100 units/ Sodium Chloride 100 ml @ 0 mls/hr TITRATE IV; Start 07/01/16 at 09:30 Insulin Human Regular 8 units 8 units BOLUS ONCE IV PUSH; Start 07/01/16 at 09: 30; Stop 07/01/16 at 09:31; Status DC IV Flush (NS Flush) 2 ml UNSCH PRN IVF; Start 07/01/16 at 07:45 Metoclopramide HCl 10 mg 10 mg ONCE ONCE IV PUSH; Start 07/01/16 at 09:15; Stop 07/01/16 at 09:16; Status DC Ondansetron HCl 4 mg 4 mg ONCE ONCE IV PUSH Last administered on 07/01/16 08: 03; Admin Dose 4 MG; Start 07/01/16 at 08:00; Stop 07/01/16 at 08:01; Status DC Potassium Chloride 100 ml @ 50 mls/hr Q2H PRN IV; Start 07/01/16 at 09:30 Potassium Chloride 100 ml @ 50 mls/hr Q2H PRN IV; Start 07/01/16 at 09:30 Potassium Chloride 100 ml @ 50 mls/hr Q2H PRN IV; Start 07/01/16 at 09:30 Potassium Chloride (KCl 20 Meq Premix Inj) 100 ml @ 50 mls/hr Q2H PRN IV; Start 07/01/16 at 09:30 Sodium Bicarbonate 50 meq 50 meq UNSCH PRN IV; Start 07/01/16 at 09:30 Sodium Bicarbonate (Sodium Bicarbonate 8.4% Inj) 100 meq UNSCH PRN IV; Start at 09:30 Sodium Chloride 1,000 ml @ 250 mls/hr Q4H IV; Start 07/01/16 at 09:19 Sodium Chloride 1,000 ml @ 2,000 mls/hr Q30M ONCE IV Last administered on 08:03; Admin Dose 2,000 MLS/HR; Start 07/01/16 at 07:40; Stop 07/01/16 at 08:09; Status DC Sodium Chloride (NS 1000 ml Inj) 1,000 ml @ 999 mls/hr BOLUS ONCE IV Last administered on 07/01/16 08:39; Admin Dose 999 MLS/HR; Start 07/01/16 at 08:30 ; Stop 07/01/16 at 09:30; Status DC Sodium Chloride (NS 1000 ml Inj) 1,000 ml @ 2,000 mls/hr Q30M ONCE IV Last administered on 07/01/16 08:04; Admin Dose 2,000 MLS/HR; Start 07/01/16 at 08: 10; Stop 07/01/16 at 08:39; Status DC Sodium Phosphate/ Sodium Chloride (Sodium Phosphate Inj/NS Inj) 105 ml @ 25 mls /hr UNSCH PRN IV; Start 07/01/16 at 09:30 Family History Non-contributory Social History Tobacco- 13 year pack history Alcohol - occasionally Illicit drugs - marijuana daily (Patrice Frank MD R1) Physical Exam Vital Signs Vital Signs Date Time Temp Pulse Resp B/P Pulse Ox O2 Delivery O2 Flow Rate FiO2 07/01/16 07:57 98.3 72 20 137/64 94 Physical Exam GENERAL: This is a well-nourished, well-developed patient. Some distress, having nausea and vomiting. SKIN: No rashes, ecchymoses or lesions. Cool and dry. HEAD: Atraumatic. Normocephalic. No temporal or scalp tenderness. EYES: Pupils equal round and reactive. Extraocular motions intact. No scleral icterus. No injection or drainage. ENT: Throat without erythema, tonsillar hypertrophy or exudate. Uvula midline. Airway patent. NECK: Trachea midline. No JVD or lymphadenopathy. Supple, nontender. CARDIOVASCULAR: Regular rate and rhythm without murmurs, gallops, or rubs. RESPIRATORY: Clear to auscultation. Breath sounds equal bilaterally. No wheezes , rales, or rhonchi. GASTROINTESTINAL: Abdomen soft, diffusely, mildly, tender to palpation. Bowel sounds present. No hepato-splenomegaly, or palpable masses. No guarding. MUSCULOSKELETAL: Extremities without clubbing, cyanosis, or edema. No joint tenderness, effusion, or edema noted. NEUROLOGICAL: Awake and alert. Motor and sensory grossly within normal limits. Normal speech. Laboratory Laboratory Tests Test 07/01/16 07/01/16 07:47 07:50 Blood Gas Puncture Site NURSE Blood Gas Patient Temperature 98.6 Venous Blood pH 7.30 Venous Blood Partial Pressure 38 CO2 Venous Blood Partial Pressure 68 O2 Venous Blood HCO3 18 Venous Blood Oxygen Saturation 89 Venous Blood Oxygen Content 18.0 Venous Blood Base Excess -7.4 Blood Gas Inspired Oxygen 21 White Blood Count 9.9 Red Blood Count 4.67 Hemoglobin 15.1 Hematocrit 43.9 Mean Corpuscular Volume 94.0 Mean Corpuscular Hemoglobin 32.2 Mean Corpuscular Hemoglobin 34.3 Concent Red Cell Distribution Width 12.7 Platelet Count 237 Mean Platelet Volume 10.2 Neutrophils (%) (Auto) 70.8 Lymphocytes (%) (Auto) 21.8 Monocytes (%) (Auto) 4.8 Eosinophils (%) (Auto) 1.1 Basophils (%) (Auto) 1.5 Neutrophils # (Auto) 7.0 Lymphocytes # (Auto) 2.2 Monocytes # (Auto) 0.5 Eosinophils # (Auto) 0.1 Basophils # (Auto) 0.1 CBC Comment DIFF FINAL Differential Comment Sodium Level 138 Potassium Level 4.4 Chloride Level 97 Carbon Dioxide Level 19.1 Anion Gap 22 Blood Urea Nitrogen 18 Creatinine 1.12 Estimat Glomerular Filtration 80 Rate Random Glucose 582 Calcium Level 9.3 Phosphorus Level 4.1 Magnesium Level 2.2 Total Bilirubin 0.6 Aspartate Amino Transf 64 (AST/SGOT) Alanine Aminotransferase 53 (ALT/SGPT) Alkaline Phosphatase 148 Total Creatine Kinase 97 Troponin I LESS THAN 0.02 Total Protein 8.0 Albumin 4.2 B-Hydroxybutyrate 5.33 (Patrice Frank MD R1) Result Diagram: 07/01/16 0750 07/01/16 0750 Imaging Last Impressions Chest X-Ray 07/01/16 0000 Signed Impressions: Service Date/Time: Friday, July 01, 2016 08:37 - CONCLUSION: No acute disease. Kevin Stevens MD (Patrice Frank MD R1) Septic Shock Reassessment Heart: Regular rate and rhythm Lungs: Clear Skin: Warm, Dry Peripheral Pulses: Bounding Right Radial Bounding Left Radial Bounding Right Popliteal Bounding Left Popliteal Bounding Right Dorsalis Pedis Bounding Left Dorsalis Pedis Bounding Right Posterior Tibial Bounding Left Posterior Tibial Capillary Refill: Brisk (Patrice Frank MD R1) Assessment and Plan Assessment and Plan 25 y/o male with history of T1DM presents with nausea/vomiting, found to have DKA. Will admit to ICU for management. Code Status Full Discussed Condition With Dr. Harper (Patrice Frank MD R1) Attending Attestation Patient seen and examined. Case reviewed and discussed with the resident team. Agree with plan of care as discussed with me and documented in the resident note. (Lisa Atkins MD) Problem List: (1) DKA (diabetic ketoacidoses) Status: Acute Plan: History of type 1 diabetes. Ran out of insulin several days ago. Home regimen of Novolin N 24 twice a day and Novolin R 10-1 carb count. He is currently homeless and wellness and was unable to fill insulin. No recent illness or other signs of infection. UA negative for infection. Chest x-ray clear. VBG significant for metabolic acidosis with pH of 7.30, bicarbonate 18. Anion gap of 22. Glucose level of 582 on admission. Beta hydroxybutyrate level 5.33 UA significant for elevated glucose and ketonuria -Admit to ICU for observation -Start on insulin drip, titrate per protocol. -We will transition to D50 once glucose reaches 200 and switch to subcutaneous insulin once anion gap closes. -Repeat VBG at 1300 -Serial BMPs, Mg, Ph q6H -Neuro checks every 4 hours -Clear liquid diet -Zofran and Reglan when necessary nausea -Tylenol, [place], morphine for PRN pain -Consult case management to assist with patient assistance ED course -Received 3L NS boluses -Received Novolin R 8 units (2) Gastritis Status: Acute Plan: No history of gastritis. Blood-tinged sputum on exam Vomit was guaiac positive. -Start on Protonix 40 mg IV every 12 hours -Clear liquid diet -Monitor for signs of GI bleed (3) FEN Status: Acute Plan: Fluids: NS @ 250mls/hr Electrolytes: wnl, continue to monitor Nutrition: CLD DVT ppx: SCDs GI ppx: Protonix Nicotine patch daily (Patrice Frank MD R1) Physician Certification 2 Midnight Certification Type: Admission for Inpatient Services Order for Inpatient Services The services are ordered in accordance with Medicare regulations or non- Medicare payer requirements, as applicable. In the case of services not specified as inpatient-only, they are appropriately provided as inpatient services in accordance with the 2-midnight benchmark. Estimated LOS (days): 2 days is the estimated time the patient will need to remain in the hospital, assuming treatment plan goals are met and no additional complications. Post-Hospital Plan: Home (Patrice Frank MD R1) Problem Qualifiers (1) DKA (diabetic ketoacidoses): Qualified Code: E10.10 - Diabetic ketoacidosis without coma associated with type 1 diabetes mellitus (2) Gastritis: Qualified Code: K29.01 - Acute gastritis with hemorrhage, unspecified gastritis type Patrice Frank MD R1 Jul 01, 2016 09:32 Lisa Atkins MD Jul 01, 2016 14:05
[2016-07-01] MEDS: SODIUM CHLOR 0.9% 1000 ML INJ 1,000 ML IV SCH ×2 (09:38→12:40)
[2016-07-01 09:46] VITALS: O2SAT 95
[2016-07-01] MEDS ORDERED: PANTOPRAZOLE SODIUM 40 MG VIAL IV PUSH SCH (10:00)
[2016-07-01] MEDS ORDERED: NICOTINE 21 MG/24 HR PATCH TD SCH (10:00)
[2016-07-01 10:14] VITALS: BP 119/58; PULSE 76; RESP 20; O2SAT 96
[2016-07-01 11:00] VITALS: BP 121/56; PULSE 62; RESP 20; TEMP 98
[2016-07-01 12:00] VITALS: BP 121/56; PULSE 62; PULSE 82; RESP 11; TEMP 98; O2SAT 99
[2016-07-01] MEDS ORDERED: ENALAPRILAT 1.25 MG/ML VIAL IV PRN (12:00)
--- NOTE | 2016-07-01 12:26 | EKG ---
Date Performed: 07/01/2016 Time Performed: 08:23:44 PTAGE: 25 years EKG: Sinus rhythm WITH MARKED SINUS ARRHYTHMIA WITH SHORT AK INTERVAL BORDERLINE ECG No significant change from prior electrocardiogram. PREVIOUS TRACING : 04/21/2016 16.04 DOCTOR: Danny Blanchard Interpretating Date/Time 07/01/2016 12:25:15
--- NOTE | 2016-07-01 13:50 | HHI.FPPN ---
Subjective Remarks 25 yo male who has been diabetic since age 12 has been vomiting overnight and did not have his Novolin N insulin. He normally takes 24 u of NovolinN bid and uses Novolin R titrated to his carbohydrate intake; gives himself 1 unit of N for ever 50 g/dl of glucose > 150. He was in ED yesterday and was treated with fluids and insulin and felt much better but as noted was without his Novolin N. He now feels much better, is hungry and would like to go home this evening. He would plan to manage his glucose with Novolin N until he could get his Novolin R. He lives in his truck; has been here for 6 months from [place]. Originally from [place] where his family lives. Please see H&P for this admission for additional past, family and social history. ROS at this point is negative except for hunger. Objective Vitals Vital Signs Date Time Temp Pulse Resp B/P Pulse Ox O2 Delivery O2 Flow Rate FiO2 07/01/16 12:00 82 07/01/16 12:00 98.0 62 11 121/56 99 07/01/16 11:00 98.0 62 20 121/56 07/01/16 10:14 76 20 119/58 96 Room Air 07/01/16 09:46 95 21 07/01/16 07:57 98.3 72 20 137/64 94 I/O 06/30/16 06/30/16 06/30/16 07/01/16 07/01/16 07/01/16 07:00 15:00 23:00 07:00 15:00 23:00 Output Total 1600 ml Balance -1600 ml Output Urine Total 1600 ml # Voids 1 Result Diagram: 07/01/16 0750 07/01/16 0750 Other Results Laboratory Tests Test 07/01/16 07/01/16 07/01/16 07:47 07:50 09:05 Blood Gas Puncture Site NURSE Blood Gas Patient Temperature 98.6 Venous Blood pH 7.30 Venous Blood Partial Pressure 38 mmHg CO2 Venous Blood Partial Pressure 68 mmHg O2 Venous Blood HCO3 18 mmol/L Venous Blood Oxygen Saturation 89 % Venous Blood Oxygen Content 18.0 Vol % Venous Blood Base Excess -7.4 mmol/L Blood Gas Inspired Oxygen 21 % White Blood Count 9.9 TH/MM3 Red Blood Count 4.67 MIL/MM3 Hemoglobin 15.1 GM/DL Hematocrit 43.9 % Mean Corpuscular Volume 94.0 FL Mean Corpuscular Hemoglobin 32.2 PG Mean Corpuscular Hemoglobin 34.3 % Concent Red Cell Distribution Width 12.7 % Platelet Count 237 TH/MM3 Mean Platelet Volume 10.2 FL Neutrophils (%) (Auto) 70.8 % Lymphocytes (%) (Auto) 21.8 % Monocytes (%) (Auto) 4.8 % Eosinophils (%) (Auto) 1.1 % Basophils (%) (Auto) 1.5 % Neutrophils # (Auto) 7.0 TH/MM3 Lymphocytes # (Auto) 2.2 TH/MM3 Monocytes # (Auto) 0.5 TH/MM3 Eosinophils # (Auto) 0.1 TH/MM3 Basophils # (Auto) 0.1 TH/MM3 CBC Comment DIFF FINAL Differential Comment Sodium Level 138 MEQ/L Potassium Level 4.4 MEQ/L Chloride Level 97 MEQ/L Carbon Dioxide Level 19.1 MEQ/L Anion Gap 22 MEQ/L Blood Urea Nitrogen 18 MG/DL Creatinine 1.12 MG/DL Estimat Glomerular Filtration 80 ML/MIN Rate Random Glucose 582 MG/DL Calcium Level 9.3 MG/DL Phosphorus Level 4.1 MG/DL Magnesium Level 2.2 MG/DL Total Bilirubin 0.6 MG/DL Aspartate Amino Transf 64 U/L (AST/SGOT) Alanine Aminotransferase 53 U/L (ALT/SGPT) Alkaline Phosphatase 148 U/L Total Creatine Kinase 97 U/L Troponin I LESS THAN 0.02 NG/ML Total Protein 8.0 GM/DL Albumin 4.2 GM/DL B-Hydroxybutyrate 5.33 MMOL/L Urine Color COLORLESS Urine Turbidity CLEAR Urine pH 5.0 Urine Specific [place] 1.024 Urine Protein NEG mg/dL Urine Glucose (UA) 1000 mg/dL Urine Ketones 150 mg/dL Urine Occult Blood NEG Urine Nitrite NEG Urine Bilirubin NEG Urine Urobilinogen LESS THAN 2.0 MG/DL Urine Leukocyte Esterase NEG Urine RBC LESS THAN 1 /hpf Urine WBC 1 /hpf Microscopic Urinalysis Comment CULT NOT INDICATED Imaging Last Impressions Chest X-Ray 07/01/16 0000 Signed Impressions: Service Date/Time: Friday, July 01, 2016 08:37 - CONCLUSION: No acute disease. Kevin Stevens MD Objective Remarks O. CONSTITUTIONAL/GEN: normally nourished, in NAD. EYES: conjunctiva normal, PERRLA, EOMI. ENT: Mouth and pharynx normal. MM slightly dry NECK: thyroid midline, no lymphadenopathy. LUNGS: clear A-P, respiratory effort is normal. CARDIOVASCULAR: RR without murmur or gallop. No significant edema. GI/ABD: soft without masses, without organomegaly. BS + NEURO: No focal deficits. SKIN: color normal, no rashes noted. Good turgor. HEME/LYMPH: no bruising, petechia or significant adenopathy MUSC: Extremities are normal in appearance. PSYCH/MENTAL STATUS: Alert and oriented x 3. A/P Assessment and Plan 25 y/o male with history of T1DM presents with nausea/vomiting, found to have DKA. Will admit to ICU for management. Attending Attestation Patient seen and examined. Case reviewed and discussed with the resident team. Agree with plan of care as discussed with me and documented in the resident note. Problem List: (1) DKA (diabetic ketoacidoses) Status: Acute Plan: History of type 1 diabetes. Ran out of insulin several days ago. Home regimen of Novolin N 24 twice a day and Novolin R 10-1 carb count. He is currently homeless and wellness and was unable to fill insulin. No recent illness or other signs of infection. UA negative for infection. Chest x-ray clear. VBG significant for metabolic acidosis with pH of 7.30, bicarbonate 18. Anion gap of 22. Glucose level of 582 on admission. Beta hydroxybutyrate level 5.33 UA significant for elevated glucose and ketonuria -Admit to ICU for observation -Start on insulin drip, titrate per protocol. -We will transition to D50 once glucose reaches 200 and switch to subcutaneous insulin once anion gap closes. -Repeat VBG at 1300 -Serial BMPs, Mg, Ph q6H -Neuro checks every 4 hours -Clear liquid diet -Zofran and Reglan when necessary nausea -Tylenol, [place], morphine for PRN pain -Consult case management to assist with patient assistance ED course -Received 3L NS boluses -Received Novolin R 8 units (2) Gastritis Status: Acute Plan: No history of gastritis. Blood-tinged sputum on exam Vomit was guaiac positive. -Start on Protonix 40 mg IV every 12 hours -Clear liquid diet -Monitor for signs of GI bleed (3) FEN Status: Acute Plan: Fluids: NS @ 250mls/hr Electrolytes: wnl, continue to monitor Nutrition: CLD DVT ppx: SCDs GI ppx: Protonix Nicotine patch daily Problem Qualifiers (1) DKA (diabetic ketoacidoses): Qualified Code: E10.10 - Diabetic ketoacidosis without coma associated with type 1 diabetes mellitus (2) Gastritis: Qualified Code: K29.01 - Acute gastritis with hemorrhage, unspecified gastritis type Lisa Atkins MD Jul 01, 2016 13:50
[2016-07-01 14:00] VITALS: PULSE 92
--- NOTE | 2016-07-01 14:46 | PD.AMA ---
Against Medical Advice Note Discharge Disposition: Against Medical Advice AMA Statement Patient Phil SwansonJr has decided to leave the hospital against medical advice. This patient has the capacity to refuse care and understands the risks of leaving, including permanent disability and/or . Patient [facility] from [facility]. Patient will not be accepted back to the family medicine residency service, dw Dr. Atkins and Dr. Monika Harper,Margarette Kruse MD R2 Jul 01, 2016 14:46
[2016-07-01 15:05] LABS: MAGNESIUM 2.2 MG/DL (1.5-2.5)
[2016-07-01] MEDS ORDERED: SODIUM CHLORIDE 0.9% FLUSH 5 ML FLUSH FLUSH SCH (21:00)
[2016-07-01] MEDS ORDERED: REMOVE OLD NICODERM (NICOTINE) PATCH TD SCH (21:00)
== END 2016-07-01 14:45 | disposition left against medical advice (07) | DRG 637 ==
LOC: NEPC 07:21 → NEDA 09:22 → HIMW 11:00
PROVIDERS: ADMIT Family Medicine; ATTEND Family Medicine
DX: E10.10 Type 1 diabetes mellitus with ketoacidosis without coma (principal); K29.01 Acute gastritis with bleeding; F12.90 Cannabis use, unspecified, uncomplicated; F17.210 Nicotine dependence, cigarettes, uncomplicated; Z91.14 Patient's other noncompliance with medication regimen; Z79.4 Long term (current) use of insulin; Z59.0 Homelessness
CPT/HCPCS: 71010; 80053; 81001; 82010; 82550; 82805; 82948; 83735; 84100; 84484; 85025; 93005; 96361; 96374; C9113; J1815; J1817; J2405; J2765; J7030; J7042

== ENCOUNTER 2016-10-29 13:11 | Emergency (ER) | payer OTHER ==
[~2016-10-29] VITALS: Ht 180.3 cm; Wt 75.0 kg
[2016-10-29 13:12] VITALS: BP 131/75; PULSE 74; RESP 15; TEMP 98.2; O2SAT 98
[2016-10-29 16:47] VITALS: BP 113/58; PULSE 73; RESP 14; TEMP 98.3; O2SAT 97
[2016-10-29] MEDS ORDERED: INSU100V2 SQ (17:12)
[2016-10-29] MEDS ORDERED: INSU100V3 SQ (17:12)
--- NOTE | 2016-10-29 17:23 | PD ---
HPI Chief Complaint: Edema Time Seen by Provider: 17:10 Travel History International Travel<30 days: No Contact w/Intl Traveler<30days: No Traveled to known affect area: No History of Present Illness HPI patient states that he has noticed swelling to ble feet/ankles for past 2 days, this has never happened before, he denies h/o chf/kidney or liver failure. no discoloration to skin on LE, no weeping, no foul discharge PFSH Past Medical History Cancer: No Cardiovascular Problems: No Diabetes: Yes (INSULIN ) Patient Takes Glucophage: No Diminished Hearing: No Endocrine: Yes Genitourinary: No Immune Disorder: No Medical other: Yes (DM) Musculoskeletal: No Neurologic: No Psychiatric: No Reproductive: No Respiratory: No Tetanus Vaccination: > 5 Years Influenza Vaccination: No Past Surgical History AICD: No Arteriovenous Shunt: No Insulin Pump: No Joint Replacement: No Pacemaker: No Social History Alcohol Use: No (PT DENIES) Tobacco Use: Yes (1 PPD) Substance Use: No (PT DENIES ) Allergies-Medications (Allergen,Severity, Reaction): Coded Allergies: No Known Allergies (Unverified , 10/29/16) Reported Meds & Prescriptions Reported Meds & Active Scripts Active Reported Humulin N Inj (Insulin Human NPH) 1,000 Unit/10 Ml Vial 24 Units SQ DAILY Humulin R Inj (Insulin Human Regular) 1,000 Unit/10 Ml Vial 2-10 Units SQ TIDAC PRN IMPORTANT TO EAT A MEAL WITHIN 30-60 MINUTES OF DOSING Review of Systems Except as stated in HPI: all other systems reviewed are Neg Cardiovascular: Positive: Edema Physical Exam Narrative GENERAL: SKIN: Warm and dry. HEAD: Atraumatic. Normocephalic. EYES: Pupils equal and round. No scleral icterus. No injection or drainage. ENT: No nasal bleeding or discharge. Mucous membranes pink and moist. NECK: Trachea midline. No JVD. CARDIOVASCULAR: Regular rate and rhythm. RESPIRATORY: No accessory muscle use. Clear to auscultation. Breath sounds equal bilaterally. GASTROINTESTINAL: Abdomen soft, non-tender, nondistended. Hepatic and splenic margins not palpable. MUSCULOSKELETAL: Extremities without clubbing, cyanosis, or 1+ bilateral pitting edema to feet and distal tib but not proximally, no cellulitic changes noted. No obvious deformities. NEUROLOGICAL: Awake and alert. No obvious cranial nerve deficits. Motor grossly within normal limits. Five out of 5 muscle strength in the arms and legs. Normal speech. PSYCHIATRIC: Appropriate mood and affect; insight and judgment normal. Data Data Last Documented VS Vital Signs Date Time Temp Pulse Resp B/P Pulse Ox O2 Delivery O2 Flow Rate FiO2 10/29/16 20:16 98.1 56 18 106/53 97 Room Air Orders Complete Blood Count With Diff (10/29/16 17:33) Comprehensive Metabolic Panel (10/29/16 17:33) B-Type Natriuretic Peptide (10/29/16 17:33) Thyroid Stimulating Hormone (10/29/16 17:33) Us Leg Venous Doppler Bilat (10/29/16 ) Beta Hydroxybutyrate (Acetone) (10/29/16 19:09) Sodium Chlor 0.9% 1000 Ml Inj (Ns 1000 M (10/29/16 19:09) Insulin Human Regular Inj (Novolin R Inj (10/29/16 19:15) Arterial Blood Gas (Abg) (10/29/16 ) Blood Glucose (10/29/16 20:24) Sodium Chlor 0.9% 1000 Ml Inj (Ns 1000 M (10/29/16 20:30) Stocking, Sixto Knee Lg X-Lng Pr (10/29/16 20:29) Labs Laboratory Tests Test 10/29/16 10/29/16 17:40 19:20 White Blood Count 9.2 TH/MM3 Red Blood Count 4.23 MIL/MM3 Hemoglobin 13.9 GM/DL Hematocrit 40.5 % Mean Corpuscular Volume 95.6 FL Mean Corpuscular Hemoglobin 32.9 PG Mean Corpuscular Hemoglobin 34.4 % Concent Red Cell Distribution Width 13.1 % Platelet Count 150 TH/MM3 Mean Platelet Volume 10.3 FL Neutrophils (%) (Auto) 62.5 % Lymphocytes (%) (Auto) 28.0 % Monocytes (%) (Auto) 5.2 % Eosinophils (%) (Auto) 2.9 % Basophils (%) (Auto) 1.4 % Neutrophils # (Auto) 5.8 TH/MM3 Lymphocytes # (Auto) 2.6 TH/MM3 Monocytes # (Auto) 0.5 TH/MM3 Eosinophils # (Auto) 0.3 TH/MM3 Basophils # (Auto) 0.1 TH/MM3 CBC Comment DIFF FINAL Differential Comment Sodium Level 131 MEQ/L Potassium Level 4.8 MEQ/L Chloride Level 95 MEQ/L Carbon Dioxide Level 20.3 MEQ/L Anion Gap 16 MEQ/L Blood Urea Nitrogen 19 MG/DL Creatinine 0.91 MG/DL Estimat Glomerular Filtration 101 ML/MIN Rate Random Glucose 593 MG/DL Calcium Level 8.5 MG/DL Total Bilirubin 0.4 MG/DL Aspartate Amino Transf 16 U/L (AST/SGOT) Alanine Aminotransferase 23 U/L (ALT/SGPT) Alkaline Phosphatase 95 U/L B-Type Natriuretic Peptide 38 PG/ML Total Protein 6.7 GM/DL Albumin 3.2 GM/DL Thyroid Stimulating Hormone 0.681 uIU/ML 3rd Gen B-Hydroxybutyrate 6.02 MMOL/L Blood Gas Puncture Site LT RADIAL Blood Gas Patient Temperature 98.6 Blood Gas HCO3 20 mmol/L Blood Gas Base Excess -4.7 mmol/L Blood Gas Oxygen Saturation 92 % Arterial Blood pH 7.38 Arterial Blood Partial 34 mmHg Pressure CO2 Arterial Blood Partial 91 mmHG Pressure O2 Arterial Blood Oxygen Content 18.2 Vol % Arterial Blood 4.7 % Carboxyhemoglobin Arterial Blood Methemoglobin 0.8 % Blood Gas Hemoglobin 13.9 G/DL Oxygen Delivery Device ROOM AIR Blood Gas Inspired Oxygen 21 % [facility] Medical Decision Making Medical Screen Exam Complete: Yes Emergency Medical Condition: Yes Medical Record Reviewed: Yes Interpretation(s) ABG: NORMAL PH, PCO2 AND PAO2 THUS PATIENT IS NOT IN DKA AT THIS TIME Differential Diagnosis RENAL/LIVER FAILURE V DVT V CHF V PERIPHERAL EDEMA Narrative Course PATIENT EVALUATED FOR DVT WHICH WAS NEGATIVE BY ULTRASOUND, NO E/O ABNL CREATININE, LFT'S OR BNP TO SUGGEST RENAL/LIVER OR HEART FAILURE. FOUND TO BE HYPERGLYCEMIC AND ADDRESSED WITH IVF AND INSULIN IV, WILL D/C ONCE ACCUCHECK IN 300'S. PATIENT ADVISED TO WEAR MEDICAL STOCKINGS TO AID WITH PERIPHERAL EDEMA. Diagnosis Primary Impression: PERIPHERAL EDEMA Additional Impression: HYPERGLYCEMIA Patient Instructions: Diabetic Hyperglycemia (ED), General Instructions, Leg Edema (ED) Disposition: 01 DISCHARGE HOME Condition: Stable Jack Aviles MD Oct 29, 2016 17:23
[2016-10-29 17:51] LABS: AUTOMATED NEUTROPHIL # 5.8 TH/MM3 (1.8-7.7); BASOPHIL # 0.1 TH/MM3 (0-0.2); BASOPHIL % 1.4 % (0.0-2.0); EOSINOPHIL # 0.3 TH/MM3 (0-0.4); EOSINOPHIL % 2.9 % (0.0-4.0); HEMATOCRIT 40.5 % (39.0-51.0); HEMO FLAGS DIFF FINAL; LYMPHOCYTE # 2.6 TH/MM3 (1.0-4.8); MEAN CELL VOLUME 95.6 FL (80.0-100.0); MEAN CORPUSCULAR HEMOGLOBIN 32.9 PG (27.0-34.0); MEAN CORPUSCULAR HGB CONC 34.4 % (32.0-36.0); MONO % 5.2 % (0.0-8.0); NEUT % 62.5 % (16.0-70.0); PLATELET COUNT 150 TH/MM3 (150-450); RED BLOOD COUNT 4.23 MIL/MM3 (4.50-5.90); RED CELL DISTRIBUTION WIDTH 13.1 % (11.6-17.2); WHITE BLOOD COUNT 9.2 TH/MM3 (4.0-11.0)
[2016-10-29 18:32] LABS: ALKALINE PHOSPHATASE 95 U/L (45-117); ALT (GPT) 23 U/L (12-78); ANION GAP 16 MEQ/L (5-15); AST (GOT) 16 U/L (15-37); BICARBONATE 20.3 MEQ/L (21.0-32.0); BLOOD UREA NITROGEN 19 MG/DL (7-18); CHLORIDE 95 MEQ/L (98-107); GLOMERULAR FILTRATION RATE 101 ML/MIN (>89); POTASSIUM 4.8 MEQ/L (3.5-5.1); SODIUM (NA) 131 MEQ/L (136-145); TOTAL BILIRUBIN ADULT 0.4 MG/DL (0.2-1.0)
[2016-10-29] MEDS ORDERED: INSULIN HUMAN REGULAR 1,000 UNITS/10 ML VIAL IV PUSH ONE (19:15)
[2016-10-29] MEDS: SODIUM CHLOR 0.9% 1000 ML INJ 1,000 ML IV SCH ×2 (19:27→20:15)
--- NOTE | 2016-10-29 20:03 | RADRPT ---
EXAM DATE/TIME: 10/29/2016 19:13 [place] COMPARISON: No previous studies available for comparison. INDICATIONS : Bilateral leg edema. MEDICAL HISTORY : Diabetes. Bilateral leg edema. SURGICAL HISTORY : None. ENCOUNTER: Initial ACUITY: 3 days PAIN SCORE: 2/10 LOCATION: Bilateral legs. TECHNIQUE: Venous ultrasound of the left and right leg was performed from the inguinal ligament to the proximal calf. Real-time, color Doppler and spectral tracing, compression and augmentation techniques were us ed. FINDINGS: RIGHT LEG: There is normal compressibility of the deep venous system from the inguinal region to the proximal ca lf. No echogenic clot is seen in the lumen of the common femoral, femoral, popliteal, and posterior tibial veins. There is a normal response of the venous system to proximal and distal augmentation an d respiration. LEFT LEG: There is normal compressibility of the deep venous system from the inguinal region to the proximal ca lf. No echogenic clot is seen in the lumen of the common femoral, femoral, popliteal, and posterior tibial veins. There is a normal response of the venous system to proximal and distal augmentation an d respiration. CONCLUSION: Normal examination. Chago Marcos MD on October 29, 2016 at 20:01 Board Certified Radiologist. This report was verified electronically.
[2016-10-29 20:04] LABS: BLOOD GAS BASE EXCESS -4.7 mmol/L (-2-2); BLOOD GAS CARBOXYHEMOGLOBIN 4.7 % (0-4); BLOOD GAS HCO3 20 mmol/L (22-26); BLOOD GAS METHEMOGLOBIN 0.8 % (0-2); BLOOD GAS O2 HGB SATURATION 92 % (90-100); BLOOD GAS OXYGEN CONTENT 18.2 Vol % (12.0-20.0); BLOOD GAS PCO2 34 mmHg (38-42); BLOOD GAS PO2 91 mmHG (61-120); BLOOD GAS TOTAL HGB 13.9 G/DL (12.0-16.0); CRITICAL VALUE NO; DRAW SITE LT RADIAL; FIO2 21 %; NUMBER OF ARTERIAL PUNCTURES 1; OXYGEN DEVICE ROOM AIR; STAT YES; TEMP CORR TO 98.6; ULNAR PULSE PRESENT
[2016-10-29 20:16] VITALS: BP 106/53; PULSE 56; RESP 18; TEMP 98.1; O2SAT 97
[2016-10-29] MEDS ORDERED: SODIUM CHLOR 0.9% 1000 ML INJ 1,000 ML IV ONE (20:30)
== END 2016-10-29 22:22 | disposition home or self-care (01) ==
LOC: NED 13:11 → NEPD 13:11 → NED 14:28 → NEPD 22:22
DX: R60.0 Localized edema (principal); E11.65 Type 2 diabetes mellitus with hyperglycemia; Z79.4 Long term (current) use of insulin
CPT/HCPCS: 36600; 80053; 82010; 82805; 83880; 84443; 85025; 93970; 96361; 96374; 99285; J1815; J7030

== ENCOUNTER 2016-12-25 04:43 | Emergency (ER) | payer OTHER ==
[~2016-12-25] VITALS: Ht 180.3 cm; Wt 78.0 kg
[~2016-12-25 04:43] MED LIST changes: -NOVONP2 SQ; -NOVORP2 SQ
[2016-12-25 04:44] VITALS: BP 142/82; PULSE 93; RESP 16; TEMP 97.9; O2SAT 98
[2016-12-25] MEDS ORDERED: INSU100V3 SQ (04:56)
[2016-12-25] MEDS ORDERED: AMOX500C PO (04:57)
[2016-12-25] MEDS ORDERED: DICL75TA PO (04:57)
[2016-12-25] MEDS ORDERED: ACETAMINOPHEN/HYDROcodone 325 MG/5 MG TAB PO ONE (05:00)
[2016-12-25] MEDS ORDERED: AMOXICILLIN (TRIHYDRATE) 500 MG CAP PO ONE (05:00)
--- NOTE | 2016-12-25 05:02 | PD ---
HPI Chief Complaint: Oral / Dental Pain or Problem Time Seen by Provider: 04:51 Travel History International Travel<30 days: No Contact w/Intl Traveler<30days: No Traveled to known affect area: No History of Present Illness HPI 26-year-old white male presents to emergency Department with complaints of dental pain. He states that he has had pain in his left upper maxilla for some time now. Over the last several weeks to months he has noted pieces in his tooth break away. He presents this evening due to pain. The patient is an insulin dependent diabetic. He states that he has not checked his sugars and some time. He does not have a primary care doctor. He does have patient assistance. He has not been to the clinic yet. No fever or chills. No nausea vomiting. PFSH Past Medical History Narrative Medical IDDM Cancer: No Cardiovascular Problems: No Diabetes: Yes Patient Takes Glucophage: No Diminished Hearing: No Endocrine: Yes Genitourinary: No Immune Disorder: No Musculoskeletal: No Neurologic: No Psychiatric: No Reproductive: No Respiratory: No Tetanus Vaccination: < 5 Years Past Surgical History Surgical History: No Previous Surgery AICD: No Arteriovenous Shunt: No Insulin Pump: No Joint Replacement: No Pacemaker: No Social History Alcohol Use: No (PT DENIES) Tobacco Use: Yes (1 PPD) Substance Use: No (PT DENIES ) Allergies-Medications (Allergen,Severity, Reaction): Coded Allergies: No Known Allergies (Unverified , 12/25/16) Reported Meds & Prescriptions Reported Meds & Active Scripts Active Diclofenac Sodium DR (Diclofenac Sodium) 75 Mg Tabdr 75 Mg PO BID Amoxicillin 500 Mg Cap 500 Mg PO TID Reported Humulin N Inj (Insulin Human NPH) 1,000 Unit/10 Ml Vial 30 Units SQ BID Humulin R Inj (Insulin Human Regular) 1,000 Unit/10 Ml Vial 2-10 Units SQ TIDAC PRN IMPORTANT TO EAT A MEAL WITHIN 30-60 MINUTES OF DOSING Review of Systems Except as stated in HPI: all other systems reviewed are Neg Physical Exam Narrative GENERAL: Well-developed, well-nourished in no acute distress. Nontoxic appearing. HEAD: Normocephalic, atraumatic. EYES: Pupils equal round and reactive. Extraocular motions intact. No scleral icterus. No injection or drainage. ENT: TMs clear without erythema. The external auditory canals clear. Nose: clear . Posterior pharynx is pink and moist. No tonsillar edema or exudate. Uvula midline. Airway patent. Patient has periodontal disease. He has large amount awake, Less. There is a large dental carry in tooth #15 and 16. Positive gingival edema and erythema. NECK: Trachea midline.Supple, nontender, moves head freely. No central bony tenderness or spasm. CARDIOVASCULAR: Regular rate and rhythm without murmurs, gallops, or rubs. RESPIRATORY: Clear to auscultation. Breath sounds equal bilaterally. No wheezes , rales, or rhonchi. GASTROINTESTINAL: Abdomen soft, non-tender, nondistended. No hepato-splenomegaly , or palpable masses. No guarding. EXTREMITIES: No clubbing, cyanosis, or edema. No joint tenderness, effusion, or edema noted. BACK: Nontender without deformity or crepitance. No flank tenderness. Data Data Last Documented VS Vital Signs Date Time Temp Pulse Resp B/P (MAP) Pulse Ox O2 Delivery O2 Flow Rate FiO2 12/25/16 05:13 12/25/16 04:44 97.9 93 16 98 Room Air Orders Orders Amoxicillin (Trimox) (12/25/16 05:00) Acetamin-Hydrocod 325-5 Mg ([place] 5-325 (12/25/16 05:00) Blood Glucose (12/25/16 05:02) MDM Medical Decision Making Medical Screen Exam Complete: Yes Emergency Medical Condition: Yes Medical Record Reviewed: Yes Interpretation(s) Accu-Chek 192 Differential Diagnosis MDM: Moderate Differential diagnoses: Dental abscess, dental caries, osteitis, cellulitis Narrative Course Patient's given prescriptions for penicillin and diclofenac. Patient's given Amoxil 500 and Lortab 5 milligram by mouth here in the ER. Diagnosis Primary Impression: Dentalgia Additional Impression: Dental caries Patient Instructions: Narcotic given in the ED, General Instructions Additional Instructions: Rest. Saltwater gargles. [place] oil on cotton balls. Amoxicillin and diclofenac. follow-up with a dentist as soon as possible. And return to the ER if any problems. Med/Other Pt SpecificInfo: Prescription(s) given Scripts Diclofenac Sodium DR (Diclofenac Sodium DR) 75 Mg Tabdr 75 MG PO BID, #20 TAB 0 Refills Prov: Karishma Marc MD 12/25/16 Amoxicillin (Amoxicillin) 500 Mg Cap 500 MG PO TID for Infection, #30 CAP 0 Refills Prov: Karishma Marc MD 12/25/16 Disposition: 01 DISCHARGE HOME Condition: Stable Antonio Cyr Dec 25, 2016 05:01
== END 2016-12-25 06:58 | disposition home or self-care (01) ==
LOC: NEPD 04:43
DX: K08.89 Other specified disorders of teeth and supporting structures (principal); K02.9 Dental caries, unspecified; E11.9 Type 2 diabetes mellitus without complications; F17.200 Nicotine dependence, unspecified, uncomplicated; Z79.4 Long term (current) use of insulin
CPT/HCPCS: 99284

== ENCOUNTER 2017-01-02 15:17 | Emergency (ER) | payer OTHER ==
[~2017-01-02] VITALS: Ht 180.3 cm; Wt 77.2 kg
[~2017-01-02 15:17] MED LIST changes: +AMOX500C PO; +DICL75TA PO
[2017-01-02 15:20] VITALS: BP 130/77; PULSE 98; RESP 20; TEMP 98.3; O2SAT 98
--- NOTE | 2017-01-02 15:33 | PD ---
Physical Exam Date Seen by Provider: Jan 02, 2017 Time Seen by Provider: 15:30 Narrative 26-year-old insulin-dependent diabetic presents emergency department for refill of his long-acting insulin. He states that he ran out of his long-acting insulin yesterday. The patient states that he does have a short acting insulin. The patient has also complaints of dental pain. He was just seen last week for the same. Data Data Last Documented VS Vital Signs Date Time Temp Pulse Resp B/P (MAP) Pulse Ox O2 Delivery O2 Flow Rate FiO2 01/02/17 15:20 98.3 98 20 130/77 (94) 98 Room Air [facility] Medical Record Reviewed: No Supervised Visit with PRANAV: No Condition: Stable Antonio Cyr Jan 02, 2017 15:33
[2017-01-02] MEDS ORDERED: INSU100V3 SQ (16:32)
[2017-01-02] MEDS ORDERED: INSU100V2 SQ (16:32)
--- NOTE | 2017-01-02 16:33 | PD ---
HPI Chief Complaint: Medical Clearance Time Seen by Provider: 16:28 Travel History International Travel<30 days: No Contact w/Intl Traveler<30days: No Traveled to known affect area: No History of Present Illness HPI 26-year-old male presents to emergency department requesting refill on his long- acting and short-acting insulin. Took his last dose of long-acting insulin yesterday. Has been covering himself with a short acting insulin since yesterday. Says his blood sugars have been in the mid 100s. Blood sugar in triage was 157. Has no other medical complaints. Symptoms are mild in severity. No known aggravating or relieving factors. No known allergies. No other modifying factors or associated signs and symptoms. PFSH Past Medical History Cancer: No Cardiovascular Problems: No Diabetes: Yes Patient Takes Glucophage: No Diminished Hearing: No Endocrine: Yes Genitourinary: No Immune Disorder: No Musculoskeletal: No Neurologic: No Psychiatric: No Reproductive: No Respiratory: No Tetanus Vaccination: < 5 Years Past Surgical History AICD: No Arteriovenous Shunt: No Insulin Pump: No Joint Replacement: No Pacemaker: No Other Surgery: No Social History Alcohol Use: No (PT DENIES) Tobacco Use: Yes (1 PPD) Substance Use: No Allergies-Medications (Allergen,Severity, Reaction): Coded Allergies: No Known Allergies (Unverified , 01/02/17) Reported Meds & Prescriptions Reported Meds & Active Scripts Active Humulin N Inj (Insulin Human NPH) 1,000 Unit/10 Ml Vial 30 Units SQ BID Humulin R Inj (Insulin Human Regular) 1,000 Unit/10 Ml Vial 2-10 Units SQ TIDAC PRN IMPORTANT TO EAT A MEAL WITHIN 30-60 MINUTES OF DOSING Diclofenac Sodium DR (Diclofenac Sodium) 75 Mg Tabdr 75 Mg PO BID Amoxicillin 500 Mg Cap 500 Mg PO TID Review of Systems Except as stated in HPI: all other systems reviewed are Neg Physical Exam Narrative GENERAL: Well-nourished, well-developed male patient, in no acute distress SKIN: Warm and dry. HEAD: Atraumatic. Normocephalic. EYES: Pupils equal and round. No scleral icterus. No injection or drainage. ENT: Mucosa pink and moist. Airway patent. NECK: Trachea midline. CARDIOVASCULAR: Regular rate. RESPIRATORY: No accessory muscle use. GASTROINTESTINAL: Flat. MUSCULOSKELETAL: No obvious deformities. No clubbing. No cyanosis. No edema. NEUROLOGICAL: Awake and alert. Oriented 3. No obvious cranial nerve deficits. Motor grossly within normal limits. Normal speech. PSYCHIATRIC: Appropriate mood and affect; insight and judgment normal. Data Data Last Documented VS Vital Signs Date Time Temp Pulse Resp B/P (MAP) Pulse Ox O2 Delivery O2 Flow Rate FiO2 01/02/17 15:20 98.3 98 20 130/77 (94) 98 Room Air MDM Medical Decision Making Medical Screen Exam Complete: Yes Emergency Medical Condition: Yes Medical Record Reviewed: Yes Differential Diagnosis Medication refill, diabetic, medical clearance Narrative Course 26-year-old male requesting refills on his long-acting and short-acting insulin. Blood sugar in triage was 157. Prescriptions provided for home. Instructed patient to follow up with primary care provider. Patient verbalizes understanding and agreement with treatment plan. Patient is medically cleared and stable for discharge. Discussed reasons to return to the emergency department. Patient agrees with treatment plan. The patients vital signs are stable and the patient is stable for outpatient follow-up and treatment. Patient discharged home, stable and in no acute distress. Diagnosis Primary Impression: Medication refill Referrals: Primary Care Physician Patient Instructions: General Instructions, Medication Refill, ED Additional Instructions: Follow-up with primary care provider Return to the emergency department immediately if worsening of symptoms Med/Other Pt SpecificInfo: Prescription(s) given Scripts Insulin Human NPH Inj (Humulin N Inj) 1,000 Unit/10 Ml Vial 30 UNITS SQ BID for Blood Sugar Management, #10 ML 0 Refills Prov: Nita Cardenas 01/02/17 Insulin Human Regular Inj (Humulin R Inj) 1,000 Unit/10 Ml Vial 2-10 UNITS SQ TIDAC Y for Blood Sugar Management, #10 ML 0 Refills IMPORTANT TO EAT A MEAL WITHIN 30-60 MINUTES OF DOSING Prov: Nita Cardenas 01/02/17 Disposition: 01 DISCHARGE HOME Condition: Stable Nita Cardenas Jan 02, 2017 16:33
== END 2017-01-02 16:41 | disposition home or self-care (01) ==
LOC: NEPK 15:17
DX: E11.9 Type 2 diabetes mellitus without complications (principal); F17.200 Nicotine dependence, unspecified, uncomplicated; Z79.4 Long term (current) use of insulin
CPT/HCPCS: 99284

== ENCOUNTER 2017-01-08 21:09 | Emergency (ER) | payer OTHER ==
[~2017-01-08] VITALS: Ht 180.3 cm; Wt 77.0 kg
[2017-01-08 21:11] VITALS: BP 157/90; PULSE 95; RESP 15; TEMP 98; O2SAT 97
[2017-01-08] MEDS ORDERED: IBUP800T23 PO (22:40)
--- NOTE | 2017-01-08 22:40 | PD ---
HPI Chief Complaint: Oral / Dental Pain or Problem Time Seen by Provider: 22:30 Travel History International Travel<30 days: No Contact w/Intl Traveler<30days: No Traveled to known affect area: No History of Present Illness HPI 26-year-old male presents to the emergency department for evaluation of a left sided dental pain. Patient has had a dental carry in the second molar on the top left for an extended amount of time. He has been treated for this in the past. He has not yet sought dental evaluation. States the pain is constant, throbbing. Denies any trauma. No fever or chills. Has not taken anything for the pain. Denies any other symptoms at this time. PFSH Past Medical History Cancer: No Cardiovascular Problems: No Diabetes: Yes (TYPE 1) Patient Takes Glucophage: No Diminished Hearing: No Endocrine: Yes Genitourinary: No Immune Disorder: No Musculoskeletal: No Neurologic: No Psychiatric: No Reproductive: No Respiratory: No Past Surgical History AICD: No Arteriovenous Shunt: No Insulin Pump: No Joint Replacement: No Pacemaker: No Other Surgery: No Social History Alcohol Use: No (PT DENIES) Tobacco Use: Yes (1 PPD) Substance Use: No Allergies-Medications (Allergen,Severity, Reaction): Coded Allergies: prednisone (Verified Adverse Reaction, Intermediate, HYPERGLYCEMIA, ) Reported Meds & Prescriptions Reported Meds & Active Scripts Active Peridex Liq (Chlorhexidine Gluconate (Mouth) Liq) 0.12% Soln 15 Ml SWISH-SPIT BID 14 Days Ibuprofen 800 Mg Tab 800 Mg PO Q8H PRN Humulin N Inj (Insulin Human NPH) 1,000 Unit/10 Ml Vial 30 Units SQ BID Humulin R Inj (Insulin Human Regular) 1,000 Unit/10 Ml Vial 2-10 Units SQ TIDAC PRN IMPORTANT TO EAT A MEAL WITHIN 30-60 MINUTES OF DOSING Amoxicillin 500 Mg Cap 500 Mg PO TID Review of Systems Except as stated in HPI: all other systems reviewed are Neg Physical Exam Narrative GENERAL: Well-nourished, well-developed male patient in no acute distress SKIN: Focused skin assessment warm/dry. HEAD: Normocephalic. No erythema or edema EYES: No scleral icterus. No injection or drainage. ENT: Mucosa pink and moist. No erythema or exudates. No uvular edema. No uvular , palatal, or tonsillar deviation. Airway patent. Nasal turbinates appear normal without nasal blood, purulent drainage or septal hematoma. DENTAL: No loose or chipped teeth. Significant decay noted at the left maxillary second molar. No gingival erythema or edema. No appreciable abscess. No malocclusion. NECK: Supple, trachea midline. No JVD or lymphadenopathy. CARDIOVASCULAR: Regular rate and rhythm without murmurs, gallops, or rubs. RESPIRATORY: Breath sounds equal bilaterally. No accessory muscle use. Data Data Last Documented VS Vital Signs Date Time Temp Pulse Resp B/P (MAP) Pulse Ox O2 Delivery O2 Flow Rate FiO2 01/08/17 22:56 01/08/17 21:11 98.0 95 15 97 Room Air Orders Orders Ibuprofen (Motrin) (01/08/17 22:45) [facility] Medical Decision Making Medical Screen Exam Complete: Yes Emergency Medical Condition: Yes Medical Record Reviewed: Yes Differential Diagnosis Dental caries versus dental abscess versus periodontal disease versus gingivitis Narrative Course 26-year-old male presents to emergency department for evaluation dental pain. Patient does have a dental carry at the left maxillary second molar. The pain is likely due to the extent of the decay. I did not see any gingival erythema or edema or appreciable abscess. Patient will be treated for pain and provided a prescription outpatient. He is advised to seek dental evaluation and return immediately with any acute worsening of symptoms. Diagnosis Primary Impression: Dental caries Additional Impression: Dentalgia Referrals: Primary Care Physician Patient Instructions: Dental Caries (ED), General Instructions Additional Instructions: It is important that you seek dental evaluation Follow up with a primary care provider Return to ED with acute worsening of symptoms Med/Other Pt SpecificInfo: Prescription(s) given Scripts Chlorhexidine Gluconate (Mouth) Liq (Peridex Liq) 0.12% Soln 15 ML SWISH-SPIT BID for 14 Days, #420 ML 0 Refills Prov: Livier Jensen 01/08/17 Ibuprofen (Ibuprofen) 800 Mg Tab 800 MG PO Q8H Y for Pain/Inflammation, #30 TAB 0 Refills Prov: Livier Jensen 01/08/17 Disposition: 01 DISCHARGE HOME Condition: Stable Livier Jensen Jan 08, 2017 22:40
[2017-01-08] MEDS ORDERED: PERI0.126 SWISH-SPIT (22:41)
[2017-01-08] MEDS ORDERED: IBUPROFEN 800 MG TAB PO ONE (22:45)
== END 2017-01-08 22:57 | disposition home or self-care (01) ==
LOC: NEPD 21:09
DX: K02.9 Dental caries, unspecified (principal); E10.9 Type 1 diabetes mellitus without complications; Z79.4 Long term (current) use of insulin
CPT/HCPCS: 99283

== ENCOUNTER 2017-01-09 02:26 | Emergency (ER) | payer OTHER ==
[~2017-01-09] VITALS: Ht 180.3 cm; Wt 77.0 kg
[~2017-01-09 02:26] MED LIST changes: -DICL75TA PO; +IBUP800T23 PO; +PERI0.126 SWISH-SPIT
[2017-01-09 02:27] VITALS: BP 167/100; PULSE 93; RESP 18; TEMP 99; O2SAT 97
--- NOTE | 2017-01-09 02:50 | PD ---
HPI Chief Complaint: Oral / Dental Pain or Problem Time Seen by Provider: 02:34 Travel History International Travel<30 days: No Contact w/Intl Traveler<30days: No Traveled to known affect area: No History of Present Illness HPI 26-year-old male returns to the emergency department for evaluation of persistent dental pain. Patient was seen and evaluated earlier this evening. He does have dental caries on the left maxillary second molar. No gingival erythema or edema. No abscess. Patient was given pain control here and prescription outpatient. He did not fill this. Denies any new injury. Pain continues to be constant, throbbing, moderate to severe. No other Symptoms to report. PFSH Past Medical History Cancer: No Cardiovascular Problems: No Diabetes: Yes (TYPE 1) Patient Takes Glucophage: No Diminished Hearing: No Endocrine: Yes Genitourinary: No Immune Disorder: No Musculoskeletal: No Neurologic: No Psychiatric: No Reproductive: No Respiratory: No Past Surgical History Surgical History: No Previous Surgery AICD: No Arteriovenous Shunt: No Insulin Pump: No Joint Replacement: No Pacemaker: No Other Surgery: No Social History Alcohol Use: No (PT DENIES) Tobacco Use: Yes (1 PPD) Substance Use: No Allergies-Medications (Allergen,Severity, Reaction): Coded Allergies: prednisone (Verified Adverse Reaction, Intermediate, HYPERGLYCEMIA, ) Reported Meds & Prescriptions Reported Meds & Active Scripts Active Peridex Liq (Chlorhexidine Gluconate (Mouth) Liq) 0.12% Soln 15 Ml SWISH-SPIT BID 14 Days Ibuprofen 800 Mg Tab 800 Mg PO Q8H PRN Humulin N Inj (Insulin Human NPH) 1,000 Unit/10 Ml Vial 30 Units SQ BID Humulin R Inj (Insulin Human Regular) 1,000 Unit/10 Ml Vial 2-10 Units SQ TIDAC PRN IMPORTANT TO EAT A MEAL WITHIN 30-60 MINUTES OF DOSING Amoxicillin 500 Mg Cap 500 Mg PO TID Review of Systems Except as stated in HPI: all other systems reviewed are Neg Physical Exam Narrative GENERAL: Well-nourished, well-developed male patient in no acute distress SKIN: Focused skin assessment warm/dry. HEAD: Normocephalic. No erythema or edema EYES: No scleral icterus. No injection or drainage. ENT: Mucosa pink and moist. No erythema or exudates. No uvular edema. No uvular , palatal, or tonsillar deviation. Airway patent. Nasal turbinates appear normal without nasal blood, purulent drainage or septal hematoma. DENTAL: No loose or chipped teeth. Significant decay noted at the left maxillary second molar. No gingival erythema or edema. No appreciable abscess. No malocclusion. NECK: Supple, trachea midline. No JVD or lymphadenopathy. CARDIOVASCULAR: Regular rate and rhythm without murmurs, gallops, or rubs. RESPIRATORY: Breath sounds equal bilaterally. No accessory muscle use. Data Data Last Documented VS Vital Signs Date Time Temp Pulse Resp B/P (MAP) Pulse Ox O2 Delivery O2 Flow Rate FiO2 01/09/17 03:05 01/09/17 02:39 18 01/09/17 02:27 99.0 93 97 Room Air Orders Orders Ketorolac Inj (Toradol Inj) (01/09/17 03:00) Tramadol (Ultram) (01/09/17 03:00) [facility] Medical Decision Making Medical Screen Exam Complete: Yes Emergency Medical Condition: Yes Medical Record Reviewed: Yes Differential Diagnosis Dentalgia versus dental caries versus dental abscess versus pulpitis versus gingivitis Narrative Course 26 year old male presents to the emergency room for evaluation of persistent dental pain. He did not fill his pain control prescription after his discharge earlier this evening. He does appear in pain. Patient was given a dose of Toradol as well as Ultram here in the emergency department. I encouraged him to fill his prescription. He'll be discharged at this time.. Diagnosis Primary Impression: Dental caries Additional Impression: Dentalgia Referrals: Dentist Primary Care Physician Patient Instructions: Dental Caries (ED), General Instructions Additional Instructions: Fill your pain medication prescription that you were given on your previous visit Follow-up with a dentist Return immediately with any acute worsening of symptoms Med/Other Pt SpecificInfo: No Change to Meds Disposition: 01 DISCHARGE HOME Condition: Stable JensenLivier erazo KRYS Jan 09, 2017 02:50
[2017-01-09] MEDS ORDERED: traMADol HCL 50 MG TAB PO ONE (03:00)
[2017-01-09] MEDS ORDERED: KETOROLAC TROMETHAMINE 60 MG/2 ML (IM) VIAL IM ONE (03:00)
== END 2017-01-09 03:05 | disposition home or self-care (01) ==
LOC: NEPD 02:26
DX: K02.9 Dental caries, unspecified (principal); E10.9 Type 1 diabetes mellitus without complications; F17.200 Nicotine dependence, unspecified, uncomplicated; Z79.4 Long term (current) use of insulin; Z88.5 Allergy status to narcotic agent
CPT/HCPCS: 96372; 99284; J1885